=== PATIENT | male | born 1960 | race Caucasian/White ===

== ENCOUNTER → 2020-01-01 08:21 | Outpatient (CLI) | payer OTHER, SELFPAY ==
[2020-01-01 10:27] LABS: Creatinine Urine Random 106.5 mg/dL
[2020-01-01 10:31] LABS: Hemoglobin A1C% w Est Avg Glu 8.4 % (4.0-6.0)
[2020-01-01 10:35] LABS: Microalbumin Urine Random < 0.6 mg/dL (0-1.6)
[2020-01-01 10:42] LABS: Alanine Aminotransferase 19 IU/L (<50); Albumin 4.3 g/dL (3.5-5.0); Albumin Globulin Ratio 1.3 (1.0-2.8); Alkaline Phosphatase 79 U/L (38-126); Aspartate Aminotransferase 23 IU/L (17-59); BUN Creatinine Ratio 22.4 (6-22); Bilirubin Total 0.8 mg/dL (0.2-1.3); Blood Urea Nitrogen 17 mg/dL (9-20); Calcium 9.1 mg/dL (8.4-10.2); Carbon Dioxide 29 mmol/L (22-32); Chloride 97 mmol/L (98-107); Cholesterol 171 mg/dL (140-199); Estimated Glomerular Filt Rate > 60.0 mL/min (>60); Globulin 3.2 g/dL (1.7-4.1); Glucose 176 mg/dL (80-110); HDL Cholesterol 32 mg/dL (40-60); HEMOLYSIS 22 (0-50); LDL Cholesterol Calculated 77 mg/dL (<100); Potassium 4.1 mmol/L (3.4-5.1); Sodium 133 mmol/L (137-145); Total Protein 7.5 g/dL (6.3-8.2); Triglycerides 311 mg/dL (35-150)
== END ==
PROVIDERS: PCP Family Medicine; Referring Provider Family Medicine; Visit Provider Family Medicine
DX: E11.9 Type 2 diabetes mellitus without complications (principal); E78.5 Hyperlipidemia, unspecified; I10 Essential (primary) hypertension
CPT/HCPCS: 36415; 80053; 80061; 82043; 82570; 83036

== ENCOUNTER → 2020-02-10 11:58 | Outpatient (CLI) | payer OTHER, SELFPAY ==
[2020-02-10 12:37] LABS: Appearance Urine UA CLEAR; Bilirubin Urine UA NEGATIVE (NEGATIVE); Color Urine UA YELLOW; Glucose Urine UA 2+ g/dL (Negative); Ketones Urine UA NEGATIVE (NEGATIVE); Leukocyte Esterase Urine UA NEGATIVE (NEGATIVE); Nitrite Urine UA NEGATIVE (Negative); Occult Blood Urine UA NEGATIVE (Negative); Protein Urine UA NEGATIVE (Negative); Specific Gravity Urine UA <=1.005 (1.000-1.035); Urobilinogen Urine UA 0.2 E.U./dL (0.2); pH Urine UA 6.5 (4.5-8.0)
== END ==
PROVIDERS: PCP Family Medicine; Referring Provider Family Medicine; Visit Provider Family Medicine
DX: R10.9 Unspecified abdominal pain (principal); R50.9 Fever, unspecified
CPT/HCPCS: 81003

== ENCOUNTER → 2020-02-12 10:48 | Outpatient (CLI) | payer OTHER, SELFPAY ==
[2020-02-12 12:05] LABS: Add Manual Diff / Slide Review NO; Basophils Absolute Auto 0 /uL (0-100); Basophils Percent Auto 0.1 % (0-2); Eosinophils Absolute Auto 0 /uL (0-450); Eosinophils Percent Auto 0.5 % (2-4); Hematocrit 46.9 % (41-53); Hemoglobin 16.1 g/dL (13.5-17.5); Lymphocytes Absolute Auto 1400 /uL (1100-4500); Lymphocytes Percent Auto 18.3 % (25-40); Mean Corpuscular HGB Conc 34.3 % (30-36); Mean Corpuscular Hemoglobin 30.8 PG (26-34); Mean Corpuscular Volume 89.7 fL (80-100); Monocytes Absolute Auto 600 /uL (0-900); Monocytes Percent Auto 7.8 % (3-14); Neutrophils Absolute Auto 5700 /uL (1500-7000); Neutrophils Percent Auto 73.3 % (50-75); Platelet Count 255 X10^3/uL (150-400); Red Blood Cell Count 5.23 X10^6/uL (4.5-5.9); Red Cell Distribution Width 12.7 % (11.6-14.8); White Blood Cell Count 7.8 X10^3/uL (4.5-11.0)
[2020-02-12 12:12] LABS: Hemoglobin A1C% w Est Avg Glu 7.9 % (4.0-6.0)
[2020-02-12 12:16] LABS: Alanine Aminotransferase 23 IU/L (<50); Albumin 4.5 g/dL (3.5-5.0); Albumin Globulin Ratio 1.4 (1.0-2.8); Alkaline Phosphatase 83 U/L (38-126); Amylase 74 U/L (30-110); Aspartate Aminotransferase 21 IU/L (17-59); BUN Creatinine Ratio 18.1 (6-22); Blood Urea Nitrogen 15 mg/dL (9-20); Calcium 9.6 mg/dL (8.4-10.2); Carbon Dioxide 26 mmol/L (22-32); Chloride 101 mmol/L (98-107); Estimated Glomerular Filt Rate > 60.0 mL/min (>60); Globulin 3.2 g/dL (1.7-4.1); Glucose 290 mg/dL (80-110); HEMOLYSIS 28 (0-50); Lipase 144 U/L (23-300); Potassium 4.2 mmol/L (3.4-5.1); Sodium 134 mmol/L (137-145); Total Protein 7.7 g/dL (6.3-8.2)
== END ==
PROVIDERS: PCP Family Medicine; Referring Provider Family Medicine; Visit Provider Family Medicine
DX: E11.65 Type 2 diabetes mellitus with hyperglycemia (principal); R10.9 Unspecified abdominal pain
CPT/HCPCS: 36415; 80053; 82150; 83036; 83690; 85025

== ENCOUNTER → 2020-03-11 12:41 | Outpatient (CLI) | payer OTHER, SELFPAY ==
--- NOTE | 2020-03-11 12:41 | DI.US.S_ITS ---
PROCEDURE: US RENAL COMPLETE INDICATIONS: RIGHT FLANK PAIN TECHNIQUE: Real-time scanning was performed of the kidneys and bladder, with image documentation. COMPARISON: None. FINDINGS: Kidneys: Kidneys are normal in size. Right kidney measures 13 cm long; left kidney measures 13.8 cm long. Right renal cortical thickness is 1.6 cm; left renal cortical thickness is 2.3 cm. Renal cortical echotexture is normal. No hydronephrosis . 7.4 mm nonobstructing midpole left renal calcification. Bladder: Pre-void bladder volume is 631 mL. Post-void residual is 0 mL. Pre-void images demonstrate no intraluminal masses or stones. On pre-void images, bilateral ureteral jets are noted with color Doppler interrogation. (Of note, ureteral jets may not be detectable in up to 25% of cases due to insufficient differences in specific gravity between ureteral and bladder urine). Miscellaneous: No free pelvic fluid. IMPRESSION: 7.4 nonobstructing left renal calcification; otherwise normal appearance of the kidneys. Dictated by: Chavez Jaimes [facility] Interpreted: Tayo Mathias MD on 03/11/2020 at 14:27 Approved by: Tayo Mathias M.D. on 03/11/2020 at 16:15
== END ==
PROVIDERS: PCP Family Medicine; Referring Provider Family Medicine; Visit Provider Family Medicine
DX: R10.9 Unspecified abdominal pain (principal); N20.0 Calculus of kidney
CPT/HCPCS: 76770

== ENCOUNTER → 2020-05-27 08:54 | Outpatient (CLI) | payer OTHER, SELFPAY ==
--- NOTE | 2020-05-27 08:57 | DI.RAD.S_ITS ---
PROCEDURE: XR KUB INDICATIONS: kidney stone TECHNIQUE: One view of the abdomen acquired. COMPARISON: None. FINDINGS: Surgical changes and devices: None. Bowel: There is increased stool throughout the abdomen consistent with constipation. No free air, pneumatosis, or portal venous gas. Soft tissues: No suspicious abdominal calcifications overlying the renal shadows or along the course of the ureters or bladder. Visualized solid organ contours appear normal in size. Bones: No suspicious bony lesions. IMPRESSION: 1. No nephroureteral calculi suspected. 2. Constipation. Dictated by: Cheng Downs M.D. on 05/27/2020 at 9:43 Approved by: Cheng Downs M.D. on 05/27/2020 at 9:46
[2020-05-27 09:45] LABS: Hemoglobin A1C% w Est Avg Glu 8.1 % (4.0-6.0)
[2020-05-27 10:52] LABS: Prostate Specific Antigen 0.387 ng/mL (0.10-4.00)
== END ==
PROVIDERS: PCP Family Medicine; Referring Provider Specialist; Visit Provider Family Medicine
DX: N20.0 Calculus of kidney (principal); N40.0 Benign prostatic hyperplasia without lower urinary tract symptoms; E11.9 Type 2 diabetes mellitus without complications
CPT/HCPCS: 36415; 74018; 83036; 84153

== ENCOUNTER → 2020-07-06 14:09 | Outpatient (CLI) | payer OTHER, SELFPAY ==
--- NOTE | 2020-07-06 14:11 | DI.CT.S_ITS ---
PROCEDURE: CT KIDNEY URETER BLADDER (KUB) INDICATIONS: Kidney stone TECHNIQUE: Noncontrast 5 mm thick sections acquired from the diaphragms to the symphysis. 5 mm thick coronal and sagittal reformats were then performed. For radiation dose reduction, the following was used: automated exposure control, adjustment of mA and/or kV according to patient size. COMPARISON: [facility], CR, XR KUB, 05/27/2020, 8:55. FINDINGS: ABDOMEN: Lung bases: Normal. Heart: No significant findings. Liver: Normal. Gallbladder: Contracted otherwise normal Bile ducts: Normal. Pancreas: Normal. Spleen: Normal. Adrenals: Normal. Kidneys and Ureters: Normal. Stomach and duodenum: Normal. Bowel: Normal. Normal appendix. Other: No free fluid or air. Abdominal nodes: Normal. Aorta and IVC: Normal in size. Ventral wall: Normal. PELVIS: Bladder: Normal. Inguinal region: No hernia. Pelvic nodes: Normal. Bones: Spondylytic changes and facet arthropathy. No vertebral body compression fracture. IMPRESSION: No urolithiasis or evidence of urinary obstruction Normal appendix. No acute abnormality Dictated by: Lewis Lopez M.D. on 07/06/2020 at 15:10 Approved by: Lewis Lopez M.D. on 07/06/2020 at 15:15
== END ==
PROVIDERS: PCP Family Medicine; Referring Provider Specialist; Visit Provider Specialist
DX: N20.0 Calculus of kidney (principal)
CPT/HCPCS: 74176

== ENCOUNTER → 2020-09-13 15:45 | Outpatient (CLI) | payer OTHER, SELFPAY ==
[2020-09-13 16:19] LABS: COVID19 -Nasal RAPID Negative (Negative)
== END ==
PROVIDERS: PCP Family Medicine; Visit Provider Physician Assistant
DX: R05 Cough (principal)
CPT/HCPCS: 87635

== ENCOUNTER 2020-09-13 16:16 | Inpatient (IN) | payer OTHER, SELFPAY ==
[2020-09-13] VITALS (31 sets, daily range): BP systolic 105–169; BP diastolic 77–100; PULSE 82–161; RESP 14–25; TEMP 37.1–37.2; O2SAT 92–96; BMI 30.8
--- NOTE | 2020-09-13 16:51 | DI.RAD.S_ITS ---
PROCEDURE: XR CHEST 1V INDICATIONS: chest pain TECHNIQUE: One view of the chest was acquired. COMPARISON: None. FINDINGS: Surgical changes and devices: None. Lungs and pleura: There are bilateral confluent airspace opacities, left greater than right, with a peripheral and basilar predominance. Pulmonary vascular prominence is also demonstrated suggestive of edema. No pleural effusions or pneumothorax. Mediastinum: Mediastinal contours appear normal. Heart size is borderline enlarged. Bones and chest wall: No suspicious bony lesions. Overlying soft tissues appear unremarkable. IMPRESSION: 1. Bilateral confluent airspace opacities with a peripheral and basilar predominance. Findings are suggestive of consolidation and pneumonia including from atypical etiologies. However, the differential includes inflammatory processes such as eosinophilic pneumonia or pulmonary infarcts. Recommend correlation clinically. Dictated by: Kevin Martines M.D. on 09/13/2020 at 17:19 Approved by: Kevin Martines M.D. on 09/13/2020 at 17:21
[2020-09-13 17:42] LABS: Add Manual Diff / Slide Review NO; Basophils Absolute Auto 0 /uL (0-100); Basophils Percent Auto 0.3 % (0-2); Eosinophils Absolute Auto 100 /uL (0-450); Eosinophils Percent Auto 1.8 % (2-4); Hematocrit 38.4 % (41-53); Hemoglobin 13.5 g/dL (13.5-17.5); Lymphocytes Absolute Auto 1400 /uL (1100-4500); Lymphocytes Percent Auto 21.2 % (25-40); Mean Corpuscular HGB Conc 35.1 % (30-36); Mean Corpuscular Hemoglobin 29.9 PG (26-34); Mean Corpuscular Volume 85.2 fL (80-100); Monocytes Absolute Auto 1200 /uL (0-900); Monocytes Percent Auto 18.5 % (3-14); Neutrophils Absolute Auto 3900 /uL (1500-7000); Neutrophils Percent Auto 58.2 % (50-75); Platelet Count 398 X10^3/uL (150-400); Red Blood Cell Count 4.51 X10^6/uL (4.5-5.9); Red Cell Distribution Width 13.2 % (11.6-14.8); White Blood Cell Count 6.7 X10^3/uL (4.5-11.0)
[2020-09-13] MEDS: dilTIAZem 5 MG/ML SDV 10 MG IV (17:45)
[2020-09-13] MEDS: dilTIAZem 5 MG/ML SDV 25 MG IV (17:46)
[2020-09-13 17:54] LABS: INR 1.2 (0.9-1.3)
[2020-09-13 17:56] LABS: PTT Partial Thromboplastin Tim 29 SECONDS (26.4-36.2)
[2020-09-13 18:01] LABS: Alanine Aminotransferase 53 IU/L (<50); Albumin 3.2 g/dL (3.5-5.0); Alkaline Phosphatase 93 U/L (38-126); Aspartate Aminotransferase 28 IU/L (17-59); Bilirubin Total 0.9 mg/dL (0.2-1.3); Blood Urea Nitrogen 11 mg/dL (9-20); Calcium 8.7 mg/dL (8.4-10.2); Carbon Dioxide 25 mmol/L (22-32); Chloride 105 mmol/L (98-107); Creatine Kinase 124 U/L (55-170); Estimated Glomerular Filt Rate > 60.0 mL/min (>60); Globulin 3.2 g/dL (1.7-4.1); Glucose 263 mg/dL (80-110); HEMOLYSIS < 15 (0-50); Lactate (Lactic Acid) 1.2 mmol/L (0.7-2.1); Lipase 154 U/L (23-300); Magnesium 2.1 mg/dL (1.6-2.3); Potassium 3.9 mmol/L (3.4-5.1); Sodium 136 mmol/L (137-145); Total Protein 6.4 g/dL (6.3-8.2)
[2020-09-13 18:12] LABS: NT-proBNP (BNP-Adult 18+) 1110 pg/mL (<125); Troponin I < 0.012 ng/mL (0.01-0.034)
[2020-09-13 18:16] LABS: CKMB % Relative Index 1.4 % (1.5-5.0); Creatine Kinase MB 1.73 ng/mL (<2.37)
[2020-09-13] MEDS: dilTIAZem 125 MG in SODIUM CHLORIDE 0.9% 100 ML IV (18:37)
--- NOTE | 2020-09-13 18:44 | ED_ITS ---
HPI - SOB/Dyspnea <Senaitduong Wyatt, - Last Filed: 09/14/20 07:31> General Chief Complaint: Shortness of Breath/Dyspnea Stated Complaint: SENT BY WALK IN CLINIC FOR POSSIBLE A FIB Time Seen by Provider: 09/13/20 17:31 Source: patient Mode of arrival: Ambulatory Limitations: no limitations History of Present Illness HPI Narrative: This is a 60-year-old male comes to the emergency department with complaint of COVID symptoms. Patient states starting around August 28 he began feeling anxious, had a cough that was initially nonproductive but now has some mild yellow sputum. Restless and having low-grade temperatures. He has also had change of taste and notes that everything seems to smell like hot dogs. He has had a decreased appetite but is eating regularly. Patient states he was not feeling too bad for several days and then had some increasing symptoms. Patient's cough is continued to increase. He had some nausea vomiting for few days but this is resolved. He did states he has not had any intranasal symptoms. Patient did note that even before this he was having racing heart intermittently and has had increasing shortness of breath. He is not appreciate any chest pain or pressure. No swelling in his extremities. Patient states that he is independent bed diabetic, has a history of hypertension, dyslipidemia and anxiety. Patient takes Humulin 30 units b.i.d., metformin a 1000 in the morning and 1500 mg evening, lisinopril, lovastatin, escitalopram an aspirin 81 mg daily. Patient states he did have an alcoholic pancreatitis about 15 years ago. He no longer drinks. He does have a history of appendectomy, no cardiac stents, no heart catheterization or stress test. He is allergic to Cleocin erythromycin. No tobacco, no illicit. With his primary care is Dr. Yu. Related Data Home Medications Medication Instructions Recorded Confirmed aspirin 81 mg tablet,delayed 81 mg PO DAILY 01/26/19 09/13/20 release Previous Rx's Medication Instructions Recorded One Touch Ultra Test Strips #180 ea 02/16/20 insulin syringes (disposable) 1 mL #500 each 02/16/20 cyclobenzaprine 5 mg tablet 5 mg PO BID PRN #30 tab 02/25/20 hydroxyzine HCl 25 mg tablet 25 mg PO BID PRN #30 tab 02/25/20 metformin 1,000 mg tablet See Rx Instructions PO DAILY #225 02/25/20 tab citalopram 20 mg tablet See Rx Instructions .ROUTE 03/18/20 .COMPLEX #90 tab lovastatin 10 mg tablet 10 mg PO DAILY #90 tab 03/24/20 lisinopril 5 mg tablet See Rx Instructions .ROUTE 05/05/20 .COMPLEX #90 tab insulin NPH isoph U-100 human 100 See Rx Instructions .ROUTE 07/18/20 unit/mL subcutaneous suspension .COMPLEX #30 milliliter (Humulin N NPH U-100 Insulin (isophane susp)) Allergies Allergy/AdvReac Type Severity Reaction Status Date / Time azithromycin AdvReac Verified 09/13/20 16:39 clindamycin [From Cleocin] AdvReac Verified 09/13/20 15:38 Review of Systems <Senait Wyatt DO - Last Filed: 09/14/20 07:31> Review of Systems ROS Unobtainable: All systems reviewed & are unremarkable except as noted in HPI and below Patient History <Senait Wyatt DO - Last Filed: 09/14/20 07:31> Medical History Alcoholism in remission Anxiety DM type 2 (diabetes mellitus, type 2) (~2013) Foot pain Headache Hx of pancreatitis Hyperlipidemia Hypertension Kidney stone Right flank pain Vision disorder Surgical History Anesthesia Hx of appendectomy (~08/1974) Family History Mother Cancer Alzheimer disease Diabetes mellitus Mental health problem Thyroid disorder Father Cancer Diabetes mellitus Hyperlipidemia Hypertension Social History marital status: household members: spouse occupational status: previously employed Smoking Status: Former smoker alcohol intake: former caffeine: Yes Smoking Status: Former smoker Substance Use Type: does not use Exam <Senait Wyatt DO - Last Filed: 09/14/20 07:31> Narrative Exam Narrative: GENERAL: Alert and oriented x three, male in mild distress. HEENT: Head normocephalic, atraumatic, EOMI, pupils reactive, face symmetric, moist mucous membranes NECK: Supple, full range of motion CARDIOVASCULAR: Irregularly irregular and tachycardic rate and rhythm without murmurs, rubs or gallops. No JVD. No swelling bilateral lower extremities. RESPIRATORY: Breath sounds equal bilaterally, no wheezes rales or rhonchi. No tachypnea accessory muscle use. ABDOMEN: Soft, nontender. Normoactive bowel sounds all 4 quadrants. No guarding or rebound, rigidity, no mass : No CVA tenderness EXTREMITIES: Normal range of motion, no edema. Neurovascularly intact NEUROLOGICAL: Cranial nerves II through XII grossly intact. Moving all extremities SKIN: Warm, dry, no petechiae, no rashes or lesions. Initial Vital Signs Initial Vital Signs: Vital Signs Temperature 98.7 F 09/13/20 16:33 Pulse Rate 82 09/13/20 16:33 Respiratory Rate 18 09/13/20 16:33 Blood Pressure 143/95 H 09/13/20 16:33 Pulse Oximetry 95 09/13/20 16:33 <Sid Rodrigues MD - Last Filed: 09/13/20 20:35> Initial Vital Signs Initial Vital Signs: Vital Signs Temperature 98.7 F 09/13/20 16:33 Pulse Rate 82 09/13/20 16:33 Respiratory Rate 18 09/13/20 16:33 Blood Pressure 143/95 H 09/13/20 16:33 Pulse Oximetry 95 09/13/20 16:33 Course <Senait Wyatt DO - Last Filed: 09/14/20 07:31> Orders Ordered: Acetaminophen (Acetaminophen 325 Mg Tablet) 650 mg PO Q6HR PRN PRN Reason: Fever Atorvastatin Calcium (Atorvastatin 20 Mg Tablet) 10 mg PO BEDTIME [facility] Last Admin: 09/13/20 22:46 Dose: Not Given Documented by: SSARDEL Citalopram Hydrobromide (Citalopram 10 Mg Tablet) 20 mg PO DAILY [facility] Dextrose (Dextrose 50 % In Water 25 Gm/50 Ml Syringe) 25 gm IV PRN PRN PRN Reason: Hypoglycemia Docusate Sodium (Docusate 100 Mg Capsule) 100 mg PO BID [facility] Last Admin: 09/13/20 22:46 Dose: Not Given Documented by: SSARDEL Diltiazem HCl 125 mg/ Sodium (Chloride) 125 mls @ 5 mls/hr IV TITRATE GOME[facility]; Prot ocol Last Admin: 09/14/20 05:06 Dose: 10 mg/hr, 10 mls/hr Documented by: Titration: 09/14/20 05:06 Dose: 5 mg/hr, 5 mls/hr Documented by: Titration: 09/14/20 02:30 Dose: 5 mg/hr, 5 mls/hr Documented by: Titration: 09/14/20 01:00 Dose: 10 mg/hr, 10 mls/hr Documented by: Titration: 09/13/20 22:00 Dose: 15 mg/hr, 15 mls/hr Documented by: Titration: 09/13/20 21:11 Dose: 12.5 mg/hr, 12.5 mls/hr Documented by: Titration: 09/13/20 20:31 Dose: 10 mg/hr, 10 mls/hr Documented by: Titration: 09/13/20 19:40 Dose: 10 mg/hr, 10 mls/hr Documented by: Titration: 09/13/20 19:34 Dose: 7.5 mg/hr, 7.5 mls/hr Documented by: Admin: 09/13/20 18:37 Dose: 5 mg/hr, 5 mls/hr Documented by: [email or web address] Sodium Chloride (Normal Saline 0.9%) 1,000 mls @ 21 mls/hr IV CONT [facility] Last Admin: 09/13/20 22:16 Dose: 21 mls/hr Documented by: MADELINE Insulin Human Lispro (Insulin Lispro 100 Unit/Ml 3ml Vial) 0 unit SUBCUT ACHS [facility]; Protocol Last Admin: 09/13/20 23:37 Dose: 2 unit Documented by: MADELINE Cosigned by: TBLANTO Insulin Human NPH (Insulin Nph 100 Unit/Ml Vial) 30 unit SUBCUT BIDAC [facility] Lisinopril (Lisinopril 5 Mg Tablet) 5 mg PO DAILY [facility] Lorazepam (Lorazepam 2 Mg/Ml Inj) 0.25 mg IV Q4HR PRN PRN Reason: Anxiety Melatonin (Melatonin 3 Mg Tablet) 3 mg PO BEDTIME [facility] Metoprolol Tartrate (Metoprolol Ir 25 Mg Tablet) 50 mg PO Q6HR [facility] Morphine Sulfate (Morphine 2 Mg/Ml Inj) 2 mg IV Q4HR PRN PRN Reason: Pain, Mild (1-3) Naloxone HCl (Naloxone 0.4 Mg/Ml Vial) 0.2 mg IV Q2MIN PRN PRN Reason: Opiate Reversal Pantoprazole Sodium (Pantoprazole 40 Mg Vial) 40 mg IV DAILY [facility] Rivaroxaban (Rivaroxaban 10 Mg Tablet) 5 mg PO BIDWM [facility] Last Admin: 09/14/20 01:37 Dose: Not Given Documented by: Admin: 09/13/20 23:36 Dose: 5 mg Documented by: MADELINE Discontinued Medications Diltiazem HCl (Diltiazem 5 Mg/Ml Sdv) 10 mg IV NOW ONE Stop: 09/13/20 17:32 Last Admin: 09/13/20 17:45 Dose: 10 mg Documented by: MAK Enoxaparin Sodium (Enoxaparin 40 Mg/0.4 Ml Syringe) 40 mg SUBCUT DAILY [facility] Furosemide (Furosemide 40 Mg/4 Ml Vial) 40 mg IV NOW ONE Stop: 09/13/20 19:07 Last Admin: 09/13/20 19:45 Dose: 40 mg Documented by: IAIN Lorazepam (Lorazepam 2 Mg/Ml Inj) 0.5 mg IV Q4HR PRN PRN Reason: Anxiety Last Admin: 09/13/20 22:16 Dose: 0.5 mg Documented by: MADELINE Metoprolol Succinate (Metoprolol Er 50 Mg Tablet) 50 mg PO DAILY [facility] Metoprolol Tartrate (Metoprolol Tartrate 5 Mg/5 Ml Inj) 5 mg IV NOW ONE Stop: 09/13/20 19:07 Last Admin: 09/13/20 19:45 Dose: Not Given Documented by: IAIN Metoprolol Tartrate (Metoprolol Ir 25 Mg Tablet) 25 mg PO Q6HR [facility] Last Admin: 09/14/20 05:06 Dose: 25 mg Documented by: Admin: 09/13/20 23:36 Dose: 25 mg Documented by: MADELINE Non-Formulary Medication (Citalopram) 20 mg .ROUTE .COMPLEX [facility] Non-Formulary Medication (Lovastatin) 10 mg PO DAILY [facility] Vital Signs Vital signs: Vital Signs - 8 hr 09/13/20 16:33 09/13/20 17:42 09/13/20 18:00 Temperature 98.7 F Pulse Rate 82 157 H 154 H Respiratory Rate 18 20 18 Blood Pressure 143/95 H Pulse Oximetry 95 95 94 09/13/20 18:30 09/13/20 18:35 09/13/20 18:40 Temperature Pulse Rate 158 H 157 H 158 H Respiratory Rate 19 21 20 Blood Pressure Pulse Oximetry 93 94 95 09/13/20 18:45 09/13/20 18:46 09/13/20 18:47 Temperature Pulse Rate 157 H 156 H 155 H Respiratory Rate 21 17 14 Blood Pressure 169/84 H 169/84 H Pulse Oximetry 93 93 94 09/13/20 18:50 09/13/20 18:55 09/13/20 19:00 Temperature Pulse Rate 161 H 155 H 150 H Respiratory Rate 19 21 21 Blood Pressure 161/87 H Pulse Oximetry 94 95 95 09/13/20 19:05 09/13/20 19:10 09/13/20 19:15 Temperature Pulse Rate 155 H 160 H 157 H Respiratory Rate 23 18 20 Blood Pressure 159/100 H Pulse Oximetry 95 95 94 09/13/20 19:20 Temperature Pulse Rate 160 H Respiratory Rate 20 Blood Pressure Pulse Oximetry 94 <Sid Rodrigues MD - Last Filed: 09/13/20 20:35> Orders Ordered: Acetaminophen (Acetaminophen 325 Mg Tablet) 650 mg PO Q6HR PRN PRN Reason: Fever Atorvastatin Calcium (Atorvastatin 20 Mg Tablet) 10 mg PO BEDTIME [facility] Last Admin: 09/13/20 22:46 Dose: Not Given Documented by: MADELINE Citalopram Hydrobromide (Citalopram 10 Mg Tablet) 20 mg PO DAILY [facility] Dextrose (Dextrose 50 % In Water 25 Gm/50 Ml Syringe) 25 gm IV PRN PRN PRN Reason: Hypoglycemia Docusate Sodium (Docusate 100 Mg Capsule) 100 mg PO BID [facility] Last Admin: 09/13/20 22:46 Dose: Not Given Documented by: MADELINE Diltiazem HCl 125 mg/ Sodium (Chloride) 125 mls @ 5 mls/hr IV TITRATE GOMEZ; Protocol Last Admin: 09/14/20 05:06 Dose: 10 mg/hr, 10 mls/hr Documented by: Titration: 09/14/20 05:06 Dose: 5 mg/hr, 5 mls/hr Documented by: Titration: 09/14/20 02:30 Dose: 5 mg/hr, 5 mls/hr Documented by: Titration: 09/14/20 01:00 Dose: 10 mg/hr, 10 mls/hr Documented by: Titration: 09/13/20 22:00 Dose: 15 mg/hr, 15 mls/hr Documented by: Titration: 09/13/20 21:11 Dose: 12.5 mg/hr, 12.5 mls/hr Documented by: Titration: 09/13/20 20:31 Dose: 10 mg/hr, 10 mls/hr Documented by: Titration: 09/13/20 19:40 Dose: 10 mg/hr, 10 mls/hr Documented by: Titration: 09/13/20 19:34 Dose: 7.5 mg/hr, 7.5 mls/hr Documented by: Admin: 09/13/20 18:37 Dose: 5 mg/hr, 5 mls/hr Documented by: [email or web address] Sodium Chloride (Normal Saline 0.9%) 1,000 mls @ 21 mls/hr IV CONT [facility] Last Admin: 09/13/20 22:16 Dose: 21 mls/hr Documented by: MADELINE Insulin Human Lispro (Insulin Lispro 100 Unit/Ml 3ml Vial) 0 unit SUBCUT ACHS [facility]; Protocol Last Admin: 09/13/20 23:37 Dose: 2 unit Documented by: MADELINE Cosigned by: TBLANTO Insulin Human NPH (Insulin Nph 100 Unit/Ml Vial) 30 unit SUBCUT BIDAC [facility] Lisinopril (Lisinopril 5 Mg Tablet) 5 mg PO DAILY [facility] Lorazepam (Lorazepam 2 Mg/Ml Inj) 0.25 mg IV Q4HR PRN PRN Reason: Anxiety Melatonin (Melatonin 3 Mg Tablet) 3 mg PO BEDTIME [facility] Metoprolol Tartrate (Metoprolol Ir 25 Mg Tablet) 50 mg PO Q6HR [facility] Morphine Sulfate (Morphine 2 Mg/Ml Inj) 2 mg IV Q4HR PRN PRN Reason: Pain, Mild (1-3) Naloxone HCl (Naloxone 0.4 Mg/Ml Vial) 0.2 mg IV Q2MIN PRN PRN Reason: Opiate Reversal Pantoprazole Sodium (Pantoprazole 40 Mg Vial) 40 mg IV DAILY [facility] Rivaroxaban (Rivaroxaban 10 Mg Tablet) 5 mg PO BIDWM [facility] Last Admin: 09/14/20 01:37 Dose: Not Given Documented by: Admin: 09/13/20 23:36 Dose: 5 mg Documented by: MADELINE Discontinued Medications Diltiazem HCl (Diltiazem 5 Mg/Ml Sdv) 10 mg IV NOW ONE Stop: 09/13/20 17:32 Last Admin: 09/13/20 17:45 Dose: 10 mg Documented by: CTRMIKAYLA Enoxaparin Sodium (Enoxaparin 40 Mg/0.4 Ml Syringe) 40 mg SUBCUT DAILY [facility] Furosemide (Furosemide 40 Mg/4 Ml Vial) 40 mg IV NOW ONE Stop: 09/13/20 19:07 Last Admin: 09/13/20 19:45 Dose: 40 mg Documented by: IAIN Lorazepam (Lorazepam 2 Mg/Ml Inj) 0.5 mg IV Q4HR PRN PRN Reason: Anxiety Last Admin: 09/13/20 22:16 Dose: 0.5 mg Documented by: MADELINE Metoprolol Succinate (Metoprolol Er 50 Mg Tablet) 50 mg PO DAILY [facility] Metoprolol Tartrate (Metoprolol Tartrate 5 Mg/5 Ml Inj) 5 mg IV NOW ONE Stop: 09/13/20 19:07 Last Admin: 09/13/20 19:45 Dose: Not Given Documented by: IAIN Metoprolol Tartrate (Metoprolol Ir 25 Mg Tablet) 25 mg PO Q6HR [facility] Last Admin: 09/14/20 05:06 Dose: 25 mg Documented by: Admin: 09/13/20 23:36 Dose: 25 mg Documented by: MADELINE Non-Formulary Medication (Citalopram) 20 mg .ROUTE .COMPLEX [facility] Non-Formulary Medication (Lovastatin) 10 mg PO DAILY [facility] Vital Signs Vital signs: Vital Signs - 8 hr 09/13/20 16:33 09/13/20 17:42 09/13/20 18:00 Temperature 98.7 F Pulse Rate 82 157 H 154 H Respiratory Rate 18 20 18 Blood Pressure 143/95 H Pulse Oximetry 95 95 94 09/13/20 18:30 09/13/20 18:35 09/13/20 18:40 Temperature Pulse Rate 158 H 157 H 158 H Respiratory Rate 19 21 20 Blood Pressure Pulse Oximetry 93 94 95 09/13/20 18:45 09/13/20 18:46 09/13/20 18:47 Temperature Pulse Rate 157 H 156 H 155 H Respiratory Rate 21 17 14 Blood Pressure 169/84 H 169/84 H Pulse Oximetry 93 93 94 09/13/20 18:50 09/13/20 18:55 09/13/20 19:00 Temperature Pulse Rate 161 H 155 H 150 H Respiratory Rate 19 21 21 Blood Pressure 161/87 H Pulse Oximetry 94 95 95 09/13/20 19:05 09/13/20 19:10 09/13/20 19:15 Temperature Pulse Rate 155 H 160 H 157 H Respiratory Rate 23 18 20 Blood Pressure 159/100 H Pulse Oximetry 95 95 94 09/13/20 19:20 Temperature Pulse Rate 160 H Respiratory Rate 20 Blood Pressure Pulse Oximetry 94 MDM - SOB/Dyspnea <Senait Wyatt, - Last Filed: 09/14/20 07:31> Lab Data Result diagrams: 09/14/20 07:00 09/13/20 17:30 Labs: Lab Results 09/13/20 09/13/20 09/13/20 Range/Units 17:30 17:30 17:30 WBC 6.7 (4.5-11.0) X10^3/uL RBC 4.51 (4.5-5.9) X10^6/uL Hgb 13.5 (13.5-17.5) g/dL Hct 38.4 L (41-53) % MCV 85.2 (80-100) fL MCH 29.9 (26-34) PG MCHC 35.1 (30-36) % RDW 13.2 (11.6-14.8) % Plt Count 398 (150-400) X10^3/uL Neut % (Auto) 58.2 (50-75) % Lymph % (Auto) 21.2 L (25-40) % Story % (Auto) 18.5 H (3-14) % Eos % (Auto) 1.8 L (2-4) % Baso % (Auto) 0.3 (0-2) % Neut # (Auto) 3900 (0897-0689) /uL Lymph # (Auto) 1400 (5606-7232) /uL Story # (Auto) 1200 H (0-900) /uL Eos # (Auto) 100 (0-450) /uL Baso # (Auto) 0 (0-100) /uL PT 14.0 H (10.1-12.7) SECONDS INR 1.2 (0.9-1.3) APTT 29 (26.4-36.2) SECONDS Sodium 136 L (137-145) mmol/L Potassium 3.9 (3.4-5.1) mmol/L Chloride 105 (98-107) mmol/L Carbon Dioxide 25 (22-32) mmol/L BUN 11 (9-20) mg/dL Creatinine 0.58 L (0.66-1.25) mg/dL Estimated GFR > 60.0 (>60) mL/min BUN/Creatinine Ratio 19.0 (6-22) Glucose 263 H (80-110) mg/dL Lactate (0.7-2.1) mmol/L Calcium 8.7 (8.4-10.2) mg/dL Magnesium 2.1 (1.6-2.3) mg/dL Total Bilirubin 0.9 (0.2-1.3) mg/dL AST 28 (17-59) IU/L ALT 53 H (<50) IU/L Alkaline Phosphatase 93 (38-126) U/L Total Creatine Kinase 124 (55-170) U/L CK-MB (CK-2) 1.73 (<2.37) ng/mL CK-MB (CK-2) Rel Index 1.4 L (1.5-5.0) % Troponin I < 0.012 (0.01-0.034) ng/mL NT-Pro-B Natriuret Pep 1110 H (<125) pg/mL Total Protein 6.4 (6.3-8.2) g/dL Albumin 3.2 L (3.5-5.0) g/dL Globulin 3.2 (1.7-4.1) g/dL Albumin/Globulin Ratio 1.0 (1.0-2.8) Lipase 154 (23-300) U/L Procalcitonin (<0.5) ng/mL SARS-CoV-2 (PCR) (Negative) 09/13/20 09/13/20 09/13/20 Range/Units 17:30 17:30 18:00 WBC (4.5-11.0) X10^3/uL RBC (4.5-5.9) X10^6/uL Hgb (13.5-17.5) g/dL Hct (41-53) % MCV (80-100) fL MCH (26-34) PG MCHC (30-36) % RDW (11.6-14.8) % Plt Count (150-400) X10^3/uL Neut % (Auto) (50-75) % Lymph % (Auto) (25-40) % Story % (Auto) (3-14) % Eos % (Auto) (2-4) % Baso % (Auto) (0-2) % Neut # (Auto) (2132-5148) /uL Lymph # (Auto) (8720-4814) /uL Story # (Auto) (0-900) /uL Eos # (Auto) (0-450) /uL Baso # (Auto) (0-100) /uL PT (10.1-12.7) SECONDS INR (0.9-1.3) APTT (26.4-36.2) SECONDS Sodium (137-145) mmol/L Potassium (3.4-5.1) mmol/L Chloride (98-107) mmol/L Carbon Dioxide (22-32) mmol/L BUN (9-20) mg/dL Creatinine (0.66-1.25) mg/dL Estimated GFR (>60) mL/min BUN/Creatinine Ratio (6-22) Glucose (80-110) mg/dL Lactate 1.2 (0.7-2.1) mmol/L Calcium (8.4-10.2) mg/dL Magnesium (1.6-2.3) mg/dL Total Bilirubin (0.2-1.3) mg/dL AST (17-59) IU/L ALT (<50) IU/L Alkaline Phosphatase (38-126) U/L Total Creatine Kinase (55-170) U/L CK-MB (CK-2) (<2.37) ng/mL CK-MB (CK-2) Rel Index (1.5-5.0) % Troponin I (0.01-0.034) ng/mL NT-Pro-B Natriuret Pep (<125) pg/mL Total Protein (6.3-8.2) g/dL Albumin (3.5-5.0) g/dL Globulin (1.7-4.1) g/dL Albumin/Globulin Ratio (1.0-2.8) Lipase (23-300) U/L Procalcitonin 0.07 (<0.5) ng/mL SARS-CoV-2 (PCR) Positive H (Negative) Imaging Data Chest x-ray: Radiologist's Impression: [address] [id number] ReportSigned Patient: Fausto Phoenix RMR#: [id number]: 9Acct:[id number]/Sex: 60 / MDate of Service: 09/13/20Loc: EDAccession Number: [id number] Procedure: XR chest 1V Ordering Provider: Kailyn Rosario D.O. PROCEDURE: XR CHEST 1V INDICATIONS: chest pain TECHNIQUE: One view of the chest was acquired. COMPARISON: None. FINDINGS: Surgical changes and devices: None. Lungs and pleura: There are bilateral confluent airspace opacities, left greater than right, with a peripheral and basilar predominance. Pulmonary vascular prominence is also demonstrated suggestive of edema. No pleural effusions or pneumothorax. Mediastinum: Mediastinal contours appear normal. Heart size is borderline enlarged. Bones and chest wall: No suspicious bony lesions. Overlying soft tissues appear unremarkable. IMPRESSION: 1. Bilateral confluent airspace opacities with a peripheral and basilar predominance. Findings are suggestive of consolidation and pneumonia including from atypical etiologies. However, the differential includes inflammatory processes such as eosinophilic pneumonia or pulmonary infarcts. Recommend correlation clinically. Dictated by: Kevin Martines M.D. on 09/13/2020 at 17:19 Approved by: Kevin Martines M.D. on 09/13/2020 at 17:21 ECG Data Attestation: I personally reviewed and interpreted this ECG as follows: Prior ECG tracings: not available for review Interpretation: AFib with rapid ventricular response, rate of 165 QRS 82 and QTC 467. No acute ST changes appreciated. Nonspecific change. No prior EKGs available. MDM Narrative Medical decision making narrative: This is a 60-year-old male with no new formal diagnosis of atrial fibrillation but has been having symptoms on off for the past month. Patient has also had 2 COVID exposures including his and son whom he lives with has developed symptoms as well. Patient states his COVID symptoms he is probably on about 20 days of symptoms and has not been improving but seems to be worsening. He is insulin-dependent diabetic, is on antihypertensive dyslipidemia medications an aspirin 81 mg daily. Patient's chest x-ray shows bilateral past these left greater than right which could possibly be secondary to CHF, bacterial pneumonia or related to COVID. Patient's labs show negative troponin, BNP is elevated at 1100, glucose is 263 patient has mild electrolyte abnormalities with no major CBC changes. Patient's COVID swab on the rapid was negative earlier today but his PCR is positive. <Sid Rodrigues MD - Last Filed: 09/13/20 20:35> Lab Data Labs: Lab Results 09/13/20 09/13/20 09/13/20 Range/Units 17:30 17:30 17:30 WBC 6.7 (4.5-11.0) X10^3/uL RBC 4.51 (4.5-5.9) X10^6/uL Hgb 13.5 (13.5-17.5) g/dL Hct 38.4 L (41-53) % MCV 85.2 (80-100) fL MCH 29.9 (26-34) PG MCHC 35.1 (30-36) % RDW 13.2 (11.6-14.8) % Plt Count 398 (150-400) X10^3/uL Neut % (Auto) 58.2 (50-75) % Lymph % (Auto) 21.2 L (25-40) % Story % (Auto) 18.5 H (3-14) % Eos % (Auto) 1.8 L (2-4) % Baso % (Auto) 0.3 (0-2) % Neut # (Auto) 3900 (5957-5932) /uL Lymph # (Auto) 1400 (9702-4656) /uL Story # (Auto) 1200 H (0-900) /uL Eos # (Auto) 100 (0-450) /uL Baso # (Auto) 0 (0-100) /uL PT 14.0 H (10.1-12.7) SECONDS INR 1.2 (0.9-1.3) APTT 29 (26.4-36.2) SECONDS Sodium 136 L (137-145) mmol/L Potassium 3.9 (3.4-5.1) mmol/L Chloride 105 (98-107) mmol/L Carbon Dioxide 25 (22-32) mmol/L BUN 11 (9-20) mg/dL Creatinine 0.58 L (0.66-1.25) mg/dL Estimated GFR > 60.0 (>60) mL/min BUN/Creatinine Ratio 19.0 (6-22) Glucose 263 H (80-110) mg/dL Lactate (0.7-2.1) mmol/L Calcium 8.7 (8.4-10.2) mg/dL Magnesium 2.1 (1.6-2.3) mg/dL Total Bilirubin 0.9 (0.2-1.3) mg/dL AST 28 (17-59) IU/L ALT 53 H (<50) IU/L Alkaline Phosphatase 93 (38-126) U/L Total Creatine Kinase 124 (55-170) U/L CK-MB (CK-2) 1.73 (<2.37) ng/mL CK-MB (CK-2) Rel Index 1.4 L (1.5-5.0) % Troponin I < 0.012 (0.01-0.034) ng/mL NT-Pro-B Natriuret Pep 1110 H (<125) pg/mL Total Protein 6.4 (6.3-8.2) g/dL Albumin 3.2 L (3.5-5.0) g/dL Globulin 3.2 (1.7-4.1) g/dL Albumin/Globulin Ratio 1.0 (1.0-2.8) Lipase 154 (23-300) U/L Procalcitonin (<0.5) ng/mL SARS-CoV-2 (PCR) (Negative) 09/13/20 09/13/20 09/13/20 Range/Units 17:30 17:30 18:00 WBC (4.5-11.0) X10^3/uL RBC (4.5-5.9) X10^6/uL Hgb (13.5-17.5) g/dL Hct (41-53) % MCV (80-100) fL MCH (26-34) PG MCHC (30-36) % RDW (11.6-14.8) % Plt Count (150-400) X10^3/uL Neut % (Auto) (50-75) % Lymph % (Auto) (25-40) % Story % (Auto) (3-14) % Eos % (Auto) (2-4) % Baso % (Auto) (0-2) % Neut # (Auto) (5209-2884) /uL Lymph # (Auto) (0401-6740) /uL Story # (Auto) (0-900) /uL Eos # (Auto) (0-450) /uL Baso # (Auto) (0-100) /uL PT (10.1-12.7) SECONDS INR (0.9-1.3) APTT (26.4-36.2) SECONDS Sodium (137-145) mmol/L Potassium (3.4-5.1) mmol/L Chloride (98-107) mmol/L Carbon Dioxide (22-32) mmol/L BUN (9-20) mg/dL Creatinine (0.66-1.25) mg/dL Estimated GFR (>60) mL/min BUN/Creatinine Ratio (6-22) Glucose (80-110) mg/dL Lactate 1.2 (0.7-2.1) mmol/L Calcium (8.4-10.2) mg/dL Magnesium (1.6-2.3) mg/dL Total Bilirubin (0.2-1.3) mg/dL AST (17-59) IU/L ALT (<50) IU/L Alkaline Phosphatase (38-126) U/L Total Creatine Kinase (55-170) U/L CK-MB (CK-2) (<2.37) ng/mL CK-MB (CK-2) Rel Index (1.5-5.0) % Troponin I (0.01-0.034) ng/mL NT-Pro-B Natriuret Pep (<125) pg/mL Total Protein (6.3-8.2) g/dL Albumin (3.5-5.0) g/dL Globulin (1.7-4.1) g/dL Albumin/Globulin Ratio (1.0-2.8) Lipase (23-300) U/L Procalcitonin 0.07 (<0.5) ng/mL SARS-CoV-2 (PCR) Positive H (Negative) Discharge Plan Departure Patient Disposition: Admitted As Inpatient Clinical Impression: CHF (congestive heart failure), Atrial fibrillation with rapid ventricular response, COVID-19 virus infection Admit Date/Time: 09/13/20 19:21 Admit Provider: Sid Rodrigues
[2020-09-13 18:55] LABS: COVID19 - ADMIT (NP swab/PCR) POSITIVE (Negative)
[2020-09-13 19:44] LABS: Procalcitonin 0.07 ng/mL (<0.5)
[2020-09-13] MEDS: FUROSEMIDE 40 MG/4 ML VIAL IV (19:45)
--- NOTE | 2020-09-13 20:35 | PM.HP.1 ---
History of Present Illness History of Present Illness Date Patient Seen: 09/13/20 Time Patient Seen: 20:36 Chief complaint: SENT BY WALK IN CLINIC FOR POSSIBLE A FIB Narrative: 60-year-old male with a past medical history of hypertension hyperlipidemia and diabetes. Patient has been having problems with cough shortness of breath and now palpitations. Symptoms started on the or 09 of September. Patient states he was around family that tested positive for COVID. Had multiple chances for exposure. Patient is unvaccinated for COVID. Patient was seen in the walk-in clinic on the because of complaints of cough shortness of breath. Patient states his initial symptoms at that point began on actually on the 28 of August. Symptoms were very mild and then a 4 days before his visit on the walk-in clinic he was gradually getting worse. He describes shortness of breath with intermittent palpitations she had some increasing edema. Patient was doing well with ongoing cough productive sputum no specific temperature is although he says he has felt chills and low-grade. He has also had a change of taste. He has had decreased appetite. He has also had some ongoing nausea and vomiting. She had paroxysmal shortness of breath he has not had any significant severe chest pain radiating to his back or jaw. He is having some racing heart and increasing shortness of breath at times. Patient is an insulin-dependent diabetic. Having hard time with his blood sugars. Workup and evaluation in the emergency showed laboratory testing which was positive for COVID. Blood pressure 143/95 with pulse rate in the 150s to 160s. Temperature 98?.7. Heart rate telemetry monitoring showed patient to be in atrial fibrillation with rapid ventricular response. Patient was given an IV drip with diltiazem. Anti dose of metoprolol. I was contacted to evaluate the patient for admission to the hospital in ICU. Patient History Medical History Alcoholism in remission Anxiety DM type 2 (diabetes mellitus, type 2) (~2013) Foot pain Headache Hx of pancreatitis Hyperlipidemia Hypertension Kidney stone Right flank pain Vision disorder Surgical History Anesthesia Hx of appendectomy (~08/1974) Family & Social History Family History Mother Cancer Alzheimer disease Diabetes mellitus Mental health problem Thyroid disorder Father Cancer Diabetes mellitus Hyperlipidemia Hypertension Safety & Behavioral: Feels Safe in Current Yes Environment Been Physically Hurt or No Threatened By a Person Tobacco & Substance use: Smoking Status Former smoker alcohol intake former Substance Use Type does not use Meds Home Medications and Allergies Home Medications Medication Instructions Recorded Confirmed Type aspirin 81 mg tablet,delayed 81 mg PO DAILY 01/26/19 09/13/20 History release One Touch Ultra Test Strips #180 ea 02/16/20 09/13/20 Rx insulin syringes (disposable) 1 mL #500 each 02/16/20 09/13/20 Rx cyclobenzaprine 5 mg tablet 5 mg PO BID PRN #30 tab 02/25/20 09/13/20 Rx hydroxyzine HCl 25 mg tablet 25 mg PO BID PRN #30 tab 02/25/20 09/13/20 Rx metformin 1,000 mg tablet See Rx Instructions PO DAILY #225 02/25/20 09/13/20 Rx tab citalopram 20 mg tablet See Rx Instructions .ROUTE 03/18/20 09/13/20 Rx .COMPLEX #90 tab lovastatin 10 mg tablet 10 mg PO DAILY #90 tab 03/24/20 09/13/20 Rx lisinopril 5 mg tablet See Rx Instructions .ROUTE 05/05/20 09/13/20 Rx .COMPLEX #90 tab insulin NPH isoph U-100 human 100 See Rx Instructions .ROUTE 07/18/20 09/13/20 Rx unit/mL subcutaneous suspension .COMPLEX #30 milliliter (Humulin N NPH U-100 Insulin (isophane susp)) Allergies Allergy/AdvReac Type Severity Reaction Status Date / Time azithromycin AdvReac Verified 09/13/20 16:39 clindamycin [From Cleocin] AdvReac Verified 09/13/20 15:38 Exam Vital Signs (past 8 hours): - 09/13/20 16:33 09/13/20 17:42 09/13/20 18:00 Temperature 98.7 F Pulse Rate 82 157 H 154 H Respiratory Rate 18 20 18 Blood Pressure 143/95 H Pulse Oximetry 95 95 94 09/13/20 18:30 09/13/20 18:35 09/13/20 18:40 Temperature Pulse Rate 158 H 157 H 158 H Respiratory Rate 19 21 20 Blood Pressure Pulse Oximetry 93 94 95 09/13/20 18:45 07/20/21 18:46 09/13/20 18:47 Temperature Pulse Rate 157 H 156 H 155 H Respiratory Rate 21 17 14 Blood Pressure 169/84 H 169/84 H Pulse Oximetry 93 93 94 09/13/20 18:50 09/13/20 18:55 09/13/20 19:00 Temperature Pulse Rate 161 H 155 H 150 H Respiratory Rate 19 21 21 Blood Pressure 161/87 H Pulse Oximetry 94 95 95 09/13/20 19:05 09/13/20 19:10 09/13/20 19:15 Temperature Pulse Rate 155 H 160 H 157 H Respiratory Rate 23 18 20 Blood Pressure 159/100 H Pulse Oximetry 95 95 94 09/13/20 19:20 09/13/20 19:25 09/13/20 19:30 Temperature Pulse Rate 160 H 157 H 161 H Respiratory Rate 20 21 25 H Blood Pressure Pulse Oximetry 94 94 94 09/13/20 19:35 09/13/20 19:40 09/13/20 19:45 Temperature Pulse Rate 161 H 157 H 157 H Respiratory Rate 20 20 19 Blood Pressure Pulse Oximetry 95 95 94 09/13/20 19:49 09/13/20 19:50 09/13/20 19:55 Temperature Pulse Rate 153 H 155 H 157 H Respiratory Rate 19 19 21 Blood Pressure 157/87 H Pulse Oximetry 95 95 93 09/13/20 20:00 09/13/20 20:05 09/13/20 20:10 Temperature Pulse Rate 157 H 158 H 157 H Respiratory Rate 20 20 21 Blood Pressure Pulse Oximetry 94 95 93 Oxygen Delivery Method Room Air Narrative Exam Narrative: Gen.: [Alert and oriented x3 no apparent distress.] HEENT: [NCAT PERRLA tympanic membranes are clear nares are patent oral mucosa is moist no tonsillar hypertrophy neck is supple without lymphadenopathy no thyroid enlargement.] Cardio: [S1-S2 regular rate and rhythm no murmurs appreciated.] Respiratory: [Lungs are clear to auscultation no wheezes or crackles normal respiratory effort.] Abdomen: [Soft nontender no rebound or guarding no liver spleen enlargement no appreciable hernias] Extremities: [Full range of motion no appreciable weakness no cyanosis or edema.] Neurologic: [Grossly intact.] Objective Labs Result Diagrams: 09/13/20 17:30 09/13/20 17:30 Labs: Laboratory Results - last 24 hr 09/13/20 09/13/20 09/13/20 17:30 17:30 17:30 WBC 6.7 RBC 4.51 Hgb 13.5 Hct 38.4 L MCV 85.2 MCH 29.9 MCHC 35.1 RDW 13.2 Plt Count 398 Neut % (Auto) 58.2 Lymph % (Auto) 21.2 L [place] % (Auto) 18.5 H Eos % (Auto) 1.8 L Baso % (Auto) 0.3 Neut # (Auto) 3900 Lymph # (Auto) 1400 [place] # (Auto) 1200 H Eos # (Auto) 100 Baso # (Auto) 0 PT 14.0 H INR 1.2 APTT 29 Sodium 136 L Potassium 3.9 Chloride 105 Carbon Dioxide 25 BUN 11 Creatinine 0.58 L Estimated GFR > 60.0 BUN/Creatinine Ratio 19.0 Glucose 263 H Lactate Calcium 8.7 Magnesium 2.1 Total Bilirubin 0.9 AST 28 ALT 53 H Alkaline Phosphatase 93 Total Creatine Kinase 124 CK-MB (CK-2) 1.73 CK-MB (CK-2) Rel Index 1.4 L Troponin I < 0.012 NT-Pro-B Natriuret Pep 1110 H Total Protein 6.4 Albumin 3.2 L Globulin 3.2 Albumin/Globulin Ratio 1.0 Lipase 154 Procalcitonin SARS-CoV-2 (PCR) 09/13/20 09/13/20 09/13/20 17:30 17:30 18:00 WBC RBC Hgb Hct MCV MCH MCHC RDW Plt Count Neut % (Auto) Lymph % (Auto) [place] % (Auto) Eos % (Auto) Baso % (Auto) Neut # (Auto) Lymph # (Auto) [place] # (Auto) Eos # (Auto) Baso # (Auto) PT INR APTT Sodium Potassium Chloride Carbon Dioxide BUN Creatinine Estimated GFR BUN/Creatinine Ratio Glucose Lactate 1.2 Calcium Magnesium Total Bilirubin AST ALT Alkaline Phosphatase Total Creatine Kinase CK-MB (CK-2) CK-MB (CK-2) Rel Index Troponin I NT-Pro-B Natriuret Pep Total Protein Albumin Globulin Albumin/Globulin Ratio Lipase Procalcitonin 0.07 SARS-CoV-2 (PCR) Positive H Assessment & Plan Assessment & Plan narrative: COVID pneumonia patient with COVID pneumonia. Symptoms started August 28. Patient is unvaccinated. Symptoms have been progressive then stabilized and then started to improve.. Initial COVID test was negative current PCR test is positive. Patient still has moderate symptoms and an x-ray consistent with COVID pneumonia with viral pneumonitis. Patient is not significantly hypoxicrequiring 2 L of oxygen to maintain saturation.. But does have symptoms of shortness of breath with significant palpitations due to underlying atrial fib with rapid ventricular response. He is out of the window for treatment of remdesivir and dexamethasone for COVID. I Think a majority is symptoms are due to the underlying atrial fibrillation with rapid ventricular response exacerbated by his concomitant pneumonia. Will admit the patient to the hospital ICU status with contact precautions for COVID. He will be placed on Lovenox. And monitor closely in take and output. Acute Respiratory failure. Patient hypoxic requiring oxygenation. Combination of COVID pneumonia and his underlying atrial fibrillation with rapid ventricular response. Continue with nasal cannula oxygen monitor closely saturation and for decompensation. New onset Atrial fibrillation with rapid ventricular response. Exacerbated by pneumonia. Patient's heart rate was quite fast. Will keep him on IV Cardizem. He was also given a dose of IV metoprolol. Will continue with IV cardia exam He will be started on oral beta-blockers. Will try to gradually wean him off of the Cardizem drips once we can get his heart rate under control his blood pressure is certainly tolerating his medication at this point has been a little bit high. His cardiac enzyme is negative for cardiac ischemia. His BNP level is elevated most likely due to the underlying atrial fibrillation He is certainly a candidate for chronic anticoagulation due to his risk factors and COVID pneumonia. And will have a discussion with this and start him on appropriate anticoagulation. Will continue to monitor for signs and symptoms of cardiac ischemia. I would like to order an echocardiogram of his heart. Monitor closely his electrolytes including potassium order magnesium test for the morning. Insulin-dependent diabetes. Patient is insulin-dependent diabetic. Will start his home NPH insulin dosing lab insulin sliding scale coverage he will be written for a diabetic diet. Will monitor closely his blood sugar control and adjust his insulin appropriately. Essential hypertension. Patient is on antihypertensives outside the hospital. Will will continue to provide his home dose of lisinopril. Hyperlipidemia. Patient is on lovastatin 10 mg a day we will continue his lovastatin. Obesity with a BMI of 30. Consider morbid due to his compounding illnesses as well as diabetes and hypertension. Certainly makes him at high risk due to the COVID pneumonia.
--- NOTE | 2020-09-13 20:47 | DI.ECHO.S_ITS ---
[place] [facility]---------+ [facility] +---------+ : : [address] : : : : [id number] : : : : Phone: [phone]+ Echocardiogram Report + + :Name: REJI ALVARADO Study Date: 09/14/2020 Height: 74 in : :[facility] ReadingLocation: Weight: 240 lb : : Gender: Male BSA: 2.3 m2 : :: 1960 Age: 60 yrs BP: 107/67 mmHg: :Reason For Study: AFIB, COVID POSITIVE : :Ordering Physician: MATTHEW, : :JEFFREY Performed By: Lima Barahona : :Referring: JEFFREY CASTRO : + + Interpretation Summary Afib with controlled rate. Normal LV size and wall thickness. Mild global hypokinesis. EF is 35-40% Normal chamber sizes. No significant valvular abnormalities. Mildly dilated ascending aorta (measuring 4 cm diameter). No prior study available for comparison. Procedure: A two-dimensional transthoracic echocardiogram with color flow and Doppler was performed. The study quality was technically adequate. There is no prior echocardiogram noted for this patient. The patient was in atrial fibrillation with heart rates between 88-105 bpm during the exam. Left Ventricle: The left ventricle is normal in size and wall thickness. The ejection fraction is estimated to be 35-40%. Diastolic function could not be accurately assessed due to atrial fibrillation. Right Ventricle: The right ventricle is normal in size and function. Atria: Both atria are normal in size. There is no Doppler evidence for an interatrial shunt. Mitral Valve: The mitral valve leaflets appear mildly thickened, but open well. There is mild mitral annular calcification. There is mild mitral regurgitation. Aortic Valve: The aortic valve is trileaflet. The aortic valve opens well. The aortic valve is slightly calcified. There is no aortic valve stenosis. There is trace aortic regurgitation. Tricuspid Valve: The tricuspid valve is normal in structure and function. There is mild tricuspid regurgitation. Pulmonic Valve: The pulmonic valve is not well seen, but is grossly normal. There is no pulmonic valvular regurgitation. Great Vessels: The aortic root is normal size. The ascending aorta is mildly enlarged. The IVC is dilated (diameter is greater than 2.1 cm) and it collapses less than 50% with a sniff. This suggests a high right atrial pressure of 15 mm Hg. Pericardium/ Pleura There is no pericardial effusion. There is no pleural effusion. MMode/2D Measurements & Calculations LVIDd: 5.4 cm LVOT diam: 2.1 cm LVIDs: 4.4 cm Ao root diam: 3.7 cm FS: 18.9 % asc Aorta Diam: 4.0 cm IVSd: 0.90 cm Ao Arch Diam (Prox Trans): 3.6 cm LVPWd: 1.0 cm LV rae. diameter/BSA (cm/m^2): 2.3 LV sys. diameter/BSA (cm/m^2): 1.9 LA A2 area: 19.5 cm2 RA long axis: 5.0 cm LA A4 area: 18.0 cm2 RA area: 17.3 cm2 LA length (vol): 4.9 cm RA vol: 50.8 ml LA vol: 61.1 ml RA : 21.7 ml/m2 LA vol index: 26.0 ml/m2 IVC diam: 2.5 cm RVD1 (basal): 3.7 cm TAPSE: 2.0 cm Doppler Measurements & Calculations Ao V2 max: 119.8 cm/sec LVOT Max Kal: 99.5 cm/sec Ao V2 mean: 78.7 cm/sec LV V1 max P.0 mmHg Ao max P.7 mmHg LV V1 VTI: 17.1 cm Ao mean P.8 mmHg FLOR(I,D): 2.9 cm2 Ao V2 VTI: 20.9 cm FLOR(V,D): 3.0 cm2 sev ratio: 0.82 FLOR indexed to BSA (cm^2/m^2): 1.2 MV E max kal: 76.1 cm/sec TR max kal: 232.2 cm/sec MV A max kal: 2.4 cm/sec TR max P.6 mmHg MV E/A: 32.2 PA V2 max: 85.5 cm/sec Med Peak E' Kal: 8.3 cm/sec PA V2 mean: 55.4 cm/sec E/E' med: 9.2 PA mean P.4 mmHg Lat Peak E' Kal: 8.7 cm/sec PA Accel Time: 0.10 sec E/E' lat: 8.7 E/e' average: 8.9 MV P1/2t: 59.2 msec MV /2t max kal: 74.9 cm/sec SV(LVOT): 61.1 ml MVA(2t): 3.7 cm2 Electronically signed by: Adrienne Talamantes M.D. on Reading Physician:09/14/2020 05:49 PM
[2020-09-13] MEDS: SODIUM CHLORIDE 0.9% 1,000 ML 21 ML IV (22:16)
[2020-09-13] MEDS: LORazepam 2 MG/ML INJ 0.5 MG IV (22:16)
[2020-09-13] MEDS: METOPROLOL IR 25 MG TABLET PO (23:36)
[2020-09-13] MEDS: RIVAROXABAN 10 MG TABLET 5 MG PO (23:36)
[2020-09-13] MEDS: INSULIN LISPRO 100 UNIT/ML 3ML VIAL SUBCUT (23:37)
[2020-09-14] VITALS (36 sets, daily range): BP systolic 103–129; BP diastolic 63–88; PULSE 76–135; RESP 15–26; TEMP 36.8–37.6; O2SAT 92–95
--- NOTE | 2020-09-14 00:37 | PC.ADMIT ---
[id number] Admission Note: The patient,Fausto Phoenix,60 y/o, was given written information regarding hospital policies, unit procedures and contact persons. Patient's smoking status: Former smoker. Vital Signs - 8 hr 09/13/20 17:42 09/13/20 18:00 09/13/20 18:30 Temperature Pulse Rate 157 H 154 H 158 H Respiratory Rate 20 18 19 Blood Pressure Pulse Oximetry 95 94 93 09/13/20 18:35 09/13/20 18:40 09/13/20 18:45 Temperature Pulse Rate 157 H 158 H 157 H Respiratory Rate 21 20 21 Blood Pressure Pulse Oximetry 94 95 93 09/13/20 18:46 09/13/20 18:47 09/13/20 18:50 Temperature Pulse Rate 156 H 155 H 161 H Respiratory Rate 17 14 19 Blood Pressure 169/84 H 169/84 H Pulse Oximetry 93 94 94 09/13/20 18:55 09/13/20 19:00 09/13/20 19:05 Temperature Pulse Rate 155 H 150 H 155 H Respiratory Rate 21 21 23 Blood Pressure 161/87 H Pulse Oximetry 95 95 95 09/13/20 19:10 09/13/20 19:15 09/13/20 19:20 Temperature Pulse Rate 160 H 157 H 160 H Respiratory Rate 18 20 20 Blood Pressure 159/100 H Pulse Oximetry 95 94 94 09/13/20 19:25 09/13/20 19:30 09/13/20 19:35 Temperature Pulse Rate 157 H 161 H 161 H Respiratory Rate 21 25 H 20 Blood Pressure Pulse Oximetry 94 94 95 09/13/20 19:40 09/13/20 19:45 09/13/20 19:49 Temperature Pulse Rate 157 H 157 H 153 H Respiratory Rate 20 19 19 Blood Pressure 157/87 H Pulse Oximetry 95 94 95 09/13/20 19:50 09/13/20 19:55 09/13/20 20:00 Temperature Pulse Rate 155 H 157 H 157 H Respiratory Rate 19 21 20 Blood Pressure Pulse Oximetry 95 93 94 09/13/20 20:05 09/13/20 20:10 09/13/20 20:30 Temperature 98.9 F Pulse Rate 158 H 157 H 142 H Respiratory Rate 20 21 22 Blood Pressure 134/77 Pulse Oximetry 95 93 92 09/13/20 20:41 09/13/20 21:41 09/13/20 23:00 Temperature 98.9 F Pulse Rate 142 H 157 H 143 H Respiratory Rate 22 18 20 Blood Pressure 134/77 128/82 105/77 Pulse Oximetry 92 96 94 09/14/20 00:00 Temperature 99.1 F Pulse Rate 126 H Respiratory Rate 21 Blood Pressure 114/85 Pulse Oximetry 94 Patient admitted to ICU room 230 at 2030, placed in Droplet/Airborne precautions for COVID-19 positive test. A/Ox4, mildly anxious, he takes citalopram, IV lorazepam ordered and given per prn. He in on diltiazem gtt of 10mg/hr upon admit, but slow increased to 15mg/hr to get A-fib RVR rate 160s down, BP stable, see vital trends. Patient is steady, able to ambulate into BR with SBA, use urinal, and change into gown, denies pain, but is short of breath, RA 90%, placed on 2L NC.
--- NOTE | 2020-09-14 01:40 | PC.NURSE ---
0000-Ativan effective for patient, he was able to sleep, remains in A-fib RVR, 1st dose of metoprolol and Xeralto given as ordered, given in pudding, he says he gets nauseous from swallowing pills 2 units Lispro given for CBG 239.
[2020-09-14] MEDS: METOPROLOL IR 25 MG TABLET PO ×2 (05:06→09:12)
[2020-09-14] MEDS: dilTIAZem 125 MG in SODIUM CHLORIDE 0.9% 100 ML 10 ML IV (05:06)
--- NOTE | 2020-09-14 06:45 | P.PN_ITS ---
Subjective Subjective Date Patient Seen: 09/14/20 Time Patient Seen: 06:45 Interval history: Patient seen this morning. Did well overnight. Less tachycardic still in atrial fibrillation blood pressure is stable. 2 L of oxygen remaining obtaining sats into the mid to low 90s. He has been up out of bed. Able to go to the bathroom. Still weak. Tolerating diet. Blood pressures are better with his dose of metoprolol. Still feeling short of breath anxious and weak. Exam Vital Signs (past 8 hours): - 09/13/20 23:00 09/14/20 00:00 09/14/20 01:00 Temperature 99.1 F Pulse Rate 143 H 126 H 77 Respiratory Rate 20 21 20 Blood Pressure 105/77 114/85 111/74 Pulse Oximetry 94 94 93 09/14/20 02:00 09/14/20 03:00 09/14/20 04:00 Temperature Pulse Rate 78 76 94 H Respiratory Rate 24 21 20 Blood Pressure 103/74 111/67 107/67 Pulse Oximetry 94 93 93 09/14/20 05:00 09/14/20 05:06 09/14/20 06:00 Temperature 98.6 F 98.4 F Pulse Rate 123 H 134 H 103 H Respiratory Rate 20 21 Blood Pressure 126/80 116/70 113/75 Pulse Oximetry 93 93 Oxygen Delivery Method Nasal Cannula Oxygen Flow Rate 2 Narrative Exam Narrative: Gen.: Alert good historian HEENT: Pupils equal round reactive or mucosa is moist has nasal cannula oxygen. Cardio: S1-S2 irregular rate and rhythm Respiratory: Mild increased work of breathing. Breath sounds are clear. Abdomen: Soft nontender no rebound or guarding no liver spleen enlargement no appreciable hernias Extremities: Warm dry perfused no edema Neurologic: Grossly intact. Objective Labs Result Diagrams: 09/13/20 17:30 09/13/20 17:30 Labs: Laboratory Results - last 24 hr 09/13/20 09/13/20 09/13/20 17:30 17:30 17:30 WBC 6.7 RBC 4.51 Hgb 13.5 Hct 38.4 L MCV 85.2 MCH 29.9 MCHC 35.1 RDW 13.2 Plt Count 398 Neut % (Auto) 58.2 Lymph % (Auto) 21.2 L [place] % (Auto) 18.5 H Eos % (Auto) 1.8 L Baso % (Auto) 0.3 Neut # (Auto) 3900 Lymph # (Auto) 1400 [place] # (Auto) 1200 H Eos # (Auto) 100 Baso # (Auto) 0 PT 14.0 H INR 1.2 APTT 29 Sodium 136 L Potassium 3.9 Chloride 105 Carbon Dioxide 25 BUN 11 Creatinine 0.58 L Estimated GFR > 60.0 BUN/Creatinine Ratio 19.0 Glucose 263 H Lactate Calcium 8.7 Magnesium 2.1 Total Bilirubin 0.9 AST 28 ALT 53 H Alkaline Phosphatase 93 Total Creatine Kinase 124 CK-MB (CK-2) 1.73 CK-MB (CK-2) Rel Index 1.4 L Troponin I < 0.012 NT-Pro-B Natriuret Pep 1110 H Total Protein 6.4 Albumin 3.2 L Globulin 3.2 Albumin/Globulin Ratio 1.0 Lipase 154 Procalcitonin Nasal Screen MRSA (PCR) SARS-CoV-2 (PCR) 09/13/20 09/13/20 09/13/20 17:30 17:30 18:00 WBC RBC Hgb Hct MCV MCH MCHC RDW Plt Count Neut % (Auto) Lymph % (Auto) [place] % (Auto) Eos % (Auto) Baso % (Auto) Neut # (Auto) Lymph # (Auto) [place] # (Auto) Eos # (Auto) Baso # (Auto) PT INR APTT Sodium Potassium Chloride Carbon Dioxide BUN Creatinine Estimated GFR BUN/Creatinine Ratio Glucose Lactate 1.2 Calcium Magnesium Total Bilirubin AST ALT Alkaline Phosphatase Total Creatine Kinase CK-MB (CK-2) CK-MB (CK-2) Rel Index Troponin I NT-Pro-B Natriuret Pep Total Protein Albumin Globulin Albumin/Globulin Ratio Lipase Procalcitonin 0.07 Nasal Screen MRSA (PCR) SARS-CoV-2 (PCR) Positive H 09/13/20 21:32 WBC RBC Hgb Hct MCV MCH MCHC RDW Plt Count Neut % (Auto) Lymph % (Auto) [place] % (Auto) Eos % (Auto) Baso % (Auto) Neut # (Auto) Lymph # (Auto) [place] # (Auto) Eos # (Auto) Baso # (Auto) PT INR APTT Sodium Potassium Chloride Carbon Dioxide BUN Creatinine Estimated GFR BUN/Creatinine Ratio Glucose Lactate Calcium Magnesium Total Bilirubin AST ALT Alkaline Phosphatase Total Creatine Kinase CK-MB (CK-2) CK-MB (CK-2) Rel Index Troponin I NT-Pro-B Natriuret Pep Total Protein Albumin Globulin Albumin/Globulin Ratio Lipase Procalcitonin Nasal Screen MRSA (PCR) Negative for mrsa SARS-CoV-2 (PCR) PFSH Medical History Alcoholism in remission Anxiety DM type 2 (diabetes mellitus, type 2) (~2013) Foot pain Headache Hx of pancreatitis Hyperlipidemia Hypertension Kidney stone Right flank pain Vision disorder Surgical History Anesthesia Hx of appendectomy (~08/1974) Family History Mother Cancer Alzheimer disease Diabetes mellitus Mental health problem Thyroid disorder Father Cancer Diabetes mellitus Hyperlipidemia Hypertension Social History marital status: household members: spouse occupational status: previously employed Smoking Status: Former smoker alcohol intake: former caffeine: Yes Assessment & Plan Assessment & Plan narrative: New onset Atrial fibrillation with rapid ventricular response. Patient on Cardizem drips. Starting to receive oral metoprolol Cardizem dose is come down. His heart rates in the mid 100s now. Will gradually make changes to his beta-renan dose to see if we can get better control and the switch him from IV medication to oral medications. He is on immediate release metoprolol 25 mg q.6 hours will increase to 50 mg. Due to patient's risk factors. Going in and out of atrial fibrillation age and multiple comorbid illnesses. Elected to start him on anticoagulation with Xarelto at 5 mg twice daily. COVID pneumonia. Patient is out of the window needing treatment with remdesivir and dexamethasone. X-ray consistent with pneumonitis look still hypoxic requiring a little bit of oxygen. Mild respiratory failure due to this. Certainly is increased is likely headed of atrial fibrillation. I doubt other bacterial infection as procalcitonin is in normal. He is afebrile and his white blood cell count lactic acid are normal. Insulin-dependent diabetes. Patient on oral metformin which has been held. He is on his NovoLog insulin and insulin sliding scale diabetic diet. Blood sugars a.c. and HS. Essential hypertension. Patient is hypertensive. Outpatient he is on lisinopril. This has been restarted. Will go ahead and stop that as he is getting a lot of beta-blockers and calcium channel blockers will hold his l isinopril to allow for better blood pressure while we adjust his medications. Hyperlipidemia. Patient will be continued on his lovastatin. Obesity. Patient has a BMI of 30. Makes him high risk for complications due to COVID as well as atrial fibrillation Disposition and plan. Continue to adjust his beta-renan continue with anticoagulation oxygen for hypoxia. Echocardiogram for further evaluation of his heart. Repeat laboratory testing anticipate hospitalization for another few days patient will go home. Quality VTE Deep Vein Thrombosis/Pulmonary Embolism Present on Admission: No
[2020-09-14 07:20] LABS: Add Manual Diff / Slide Review NO; Basophils Absolute Auto 0 /uL (0-100); Basophils Percent Auto 0.2 % (0-2); Eosinophils Absolute Auto 100 /uL (0-450); Eosinophils Percent Auto 1.3 % (2-4); Hematocrit 37.1 % (41-53); Hemoglobin 12.8 g/dL (13.5-17.5); Lymphocytes Absolute Auto 1000 /uL (1100-4500); Mean Corpuscular HGB Conc 34.6 % (30-36); Mean Corpuscular Hemoglobin 29.9 PG (26-34); Mean Corpuscular Volume 86.2 fL (80-100); Monocytes Absolute Auto 1200 /uL (0-900); Monocytes Percent Auto 16.5 % (3-14); Neutrophils Absolute Auto 5100 /uL (1500-7000); Platelet Count 324 X10^3/uL (150-400); Red Cell Distribution Width 13.3 % (11.6-14.8); White Blood Cell Count 7.4 X10^3/uL (4.5-11.0)
[2020-09-14 07:31] LABS: INR 1.4 (0.9-1.3); Prothrombin Time 16.4 SECONDS (10.1-12.7)
[2020-09-14 07:35] LABS: Magnesium 2.1 mg/dL (1.6-2.3)
[2020-09-14 07:39] LABS: Alanine Aminotransferase 46 IU/L (<50); Alkaline Phosphatase 77 U/L (38-126); Aspartate Aminotransferase 40 IU/L (17-59); BUN Creatinine Ratio 19.3 (6-22); Bilirubin Total 0.9 mg/dL (0.2-1.3); Blood Urea Nitrogen 11 mg/dL (9-20); Calcium 8.5 mg/dL (8.4-10.2); Carbon Dioxide 26 mmol/L (22-32); Chloride 107 mmol/L (98-107); Estimated Glomerular Filt Rate > 60.0 mL/min (>60); Globulin 3.1 g/dL (1.7-4.1); Glucose 250 mg/dL (80-110); HEMOLYSIS 25 (0-50); Potassium 3.9 mmol/L (3.4-5.1); Sodium 137 mmol/L (137-145); Total Protein 6.1 g/dL (6.3-8.2)
[2020-09-14 07:46] LABS: Troponin I < 0.012 ng/mL (0.01-0.034)
[2020-09-14] MEDS: INSULIN LISPRO 100 UNIT/ML 3ML VIAL SUBCUT ×4 (08:09→20:47)
[2020-09-14] MEDS: INSULIN NPH 100 UNIT/ML VIAL 30 UNIT SUBCUT ×2 (08:09→17:02)
[2020-09-14] MEDS: RIVAROXABAN 10 MG TABLET 5 MG PO ×2 (08:12→17:01)
[2020-09-14] MEDS: PANTOPRAZOLE 40 MG VIAL IV (08:13)
[2020-09-14] MEDS: CITALOPRAM 10 MG TABLET 20 MG PO (08:13)
[2020-09-14] MEDS: lisinopriL 5 MG TABLET PO (08:13)
--- NOTE | 2020-09-14 09:37 | PC.NURSE ---
Addendum entered by Lewis Palomares R.N. 09/14/20 14:43: Spoke with Dr. Rodrigues via phone. Reported dilt gtt off, HR ranges 90s-110 Afib. Reported pt on 1L NC with SPO2 94%. Reported elevated blood sugars. Orders received to increase correctional insulin (see orders). Addendum entered by Lewis Palomares R.N. 09/14/20 13:49: Titrated dilt gtt to off. Pt is maintaining HRs 80s-90s, Afib CVR. Does have occasional increases to less than 110 with coughing but is self-limiting and quickly normalizes at rest. Remains on 2L NC with SPO2 93-95%. Gave liquid tylenol per pt request for generalized aches with good effect. Addendum entered by Lewis Palomares R.N. 09/14/20 12:25: Pt's brought pt underwear (to ED entrance). Pt's wallet given to to take home. Original Note: On initial assessment, pt with HR 110s Afib on bedside monitor. BP stable. Requesting to get OOB to chair for breakfast. SBA up to chair for breakfast. After resting a few minutes, HR trending up to 130s and sustaining. Pt denies symptoms of chest pain/pressure/palpitations. BP stable. Spoke with Dr. Rodrigues regarding HR. Reviewed rate control medications. Orders received to give one time dose of metoprolol IR 25 mg NOW which was given. Educated pt to pulmonary hygiene, A fib, rate control meds. Provided I.S. Pt able to get up to 1500 ML with 3 attempts. Instructed pt to use 10 x/hr while awake. Pt remains up to chair after breakfast per request I'm really comfortable right now. SPO2 92-94% on 2L NC. Call light in easy reach.
[2020-09-14] MEDS: METOPROLOL IR 25 MG TABLET 50 MG PO ×2 (11:54→17:01)
[2020-09-14] MEDS: ACETAMINOPHEN SUSP 650 MG/20.3 ML UDC PO (12:22)
--- NOTE | 2020-09-14 15:49 | CM.DANOTE ---
Patient is a 60 year old male who was admitted on 09/13/20 for AFIB. Pt has [employer] for insurance and his PCP is Dr. Shanna Yu. EMR was reviewed. Per MD, pt with some AFIB but also tested positive for COVID pneumonia and not covid vaccinated. Pt remains somewhat tachy this morning and has been on 2L oxygen and remains weak and SOB with limited appetite and not stable for d/c yet today. SW attempted calling pt in his room but no answer. Per RN, pt has been up sitting in bed with ability to wean pt's oxygen down some but fatigues easily. Echo ordered and pending. SW called pt's spouse and spoke briefly and she confirms that they live at home in [place] and pt is independent at baseline with ADL's and no home oxygen at baseline. Spouse dropped off and picked up some of pt's belongings today and so far does not have symptoms of COVID herself. Plan: SW to follow closely for likely plan of d/c home with spouse pending progress and for any further identified discharge planning needs. 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 Yes Advance Directives on File No History Provided By Patient,Family Member,Medical Record Has Patient been admitted in last 30 No days? Prior Living Arrangements House Household Members spouse Type of transporation used prior to Drives own vehicle admit Independent with ADL's Yes Is patient alert and oriented? Yes Caregiver for Another No Discharge Plan Home Transportation Arrangement Spouse likely to provide transport at d/c Additional Comment Pending pt progress with oxygen and AFIB needs Review Status In Process Please Provide Date Initial DC 09/14/20 Assessment Was Performed Next Review Type Continued Stay Review
[2020-09-14] MEDS: METOPROLOL ER 50 MG TABLET 100 MG PO (20:46)
[2020-09-14] MEDS: ATORVASTATIN 20 MG TABLET 10 MG PO (20:46)
[2020-09-14] MEDS: MELATONIN 3 MG TABLET PO (20:46)
[2020-09-14] MEDS: SODIUM CHLORIDE 0.9% FLUSH 10 ML IV (20:48)
--- NOTE | 2020-09-14 21:40 | PC.NURSE ---
Patient up in the chair most of the shift. Up independently to bathroom and bed. Patient has been on RA since 1610 w/ o2 sats 89-93%. Heart rate 90s-120s and taking po Metoprolo. Patient has been A&O, calm and cooperative.
[2020-09-15] VITALS (22 sets, daily range): BP systolic 115–135; BP diastolic 67–87; PULSE 76–153; RESP 16–18; TEMP 36.6–37.4; O2SAT 88–97
[2020-09-15] MEDS: LORazepam 2 MG/ML INJ 0.25 MG IV (04:31)
[2020-09-15] MEDS: ACETAMINOPHEN SUSP 650 MG/20.3 ML UDC PO (04:31)
--- NOTE | 2020-09-15 05:03 | PC.NURSE ---
Addendum entered by Gladis Mathis R.N. 09/15/20 06:49: Pt's B/P 122/67 and HR AFIB running between 90-115 BPM. Original Note: Pt's HR noted to steadily increase to AFIB 130s-150s. Approx 0425, BP WNL, 117/77. SPO2 90% 1L NC, raised to 2L NC w/ corresponding increase in SPO2 at 95%. Temp at 99.3? F, given tylenol 650 mg PRN. Denied pain. Given prn ativan to assist in possibly lowering HR if d/t anxiety related reasons. No change noted. On-call provider Lilia notified at 0500, given orders for 50 mg IR metoprolol to be administered.
[2020-09-15] MEDS: METOPROLOL IR 50 MG TABLET PO (05:11)
[2020-09-15 06:55] LABS: Add Manual Diff / Slide Review NO; Basophils Absolute Auto 0 /uL (0-100); Basophils Percent Auto 0.3 % (0-2); Eosinophils Absolute Auto 100 /uL (0-450); Eosinophils Percent Auto 1.5 % (2-4); Hematocrit 35.4 % (41-53); Hemoglobin 11.9 g/dL (13.5-17.5); Lymphocytes Absolute Auto 1200 /uL (1100-4500); Lymphocytes Percent Auto 14.1 % (25-40); Mean Corpuscular HGB Conc 33.8 % (30-36); Mean Corpuscular Hemoglobin 29.2 PG (26-34); Mean Corpuscular Volume 86.6 fL (80-100); Monocytes Absolute Auto 1300 /uL (0-900); Monocytes Percent Auto 15.4 % (3-14); Neutrophils Absolute Auto 6000 /uL (1500-7000); Neutrophils Percent Auto 68.7 % (50-75); Platelet Count 297 X10^3/uL (150-400); Red Blood Cell Count 4.09 X10^6/uL (4.5-5.9); Red Cell Distribution Width 13.9 % (11.6-14.8); White Blood Cell Count 8.7 X10^3/uL (4.5-11.0)
[2020-09-15 07:04] LABS: Alanine Aminotransferase 39 IU/L (<50); Albumin 2.7 g/dL (3.5-5.0); Albumin Globulin Ratio 0.9 (1.0-2.8); Alkaline Phosphatase 76 U/L (38-126); Aspartate Aminotransferase 22 IU/L (17-59); BUN Creatinine Ratio 18.8 (6-22); Bilirubin Total 0.8 mg/dL (0.2-1.3); Blood Urea Nitrogen 12 mg/dL (9-20); Calcium 8.2 mg/dL (8.4-10.2); Carbon Dioxide 30 mmol/L (22-32); Chloride 105 mmol/L (98-107); Estimated Glomerular Filt Rate > 60.0 mL/min (>60); Globulin 3.1 g/dL (1.7-4.1); Glucose 180 mg/dL (80-110); HEMOLYSIS 16 (0-50); Sodium 135 mmol/L (137-145); Total Protein 5.8 g/dL (6.3-8.2)
[2020-09-15] MEDS: SODIUM CHLORIDE 0.9% FLUSH 10 ML IV ×2 (08:20→22:00)
[2020-09-15] MEDS: METOPROLOL ER 50 MG TABLET 100 MG PO (08:20)
[2020-09-15] MEDS: RIVAROXABAN 10 MG TABLET 5 MG PO (08:21)
[2020-09-15] MEDS: CITALOPRAM 10 MG TABLET 20 MG PO (08:22)
[2020-09-15] MEDS: lisinopriL 5 MG TABLET PO (08:22)
[2020-09-15] MEDS: PANTOPRAZOLE 40 MG VIAL IV (08:22)
[2020-09-15] MEDS: INSULIN LISPRO 100 UNIT/ML 3ML VIAL SUBCUT ×4 (08:26→21:55)
[2020-09-15] MEDS: INSULIN NPH 100 UNIT/ML VIAL 30 UNIT SUBCUT ×3 (08:26→21:56)
[2020-09-15] MEDS: METOPROLOL ER 50 MG TABLET PO (08:49)
--- NOTE | 2020-09-15 08:50 | P.PN_ITS ---
Subjective Subjective Date Patient Seen: 09/15/20 Time Patient Seen: 07:50 Interval history: The pt reports that he continues to feel very fatigued. He feels his SOB is slightly improved. He denies any palpitations or chest pain. As per nursing, the pts HR did increase significantly overnight again. He received an additional 50mg of Metoprolol tartrate this morning, with limited benefit. Exam Vital Signs (past 8 hours): - 09/15/20 04:15 09/15/20 04:31 09/15/20 05:05 Temperature 99.3 F 99.3 F Pulse Rate 145 H Respiratory Rate 16 Blood Pressure 117/77 119/76 Pulse Oximetry 95 09/15/20 05:20 09/15/20 06:11 09/15/20 06:48 Temperature 97.9 F Pulse Rate 150 H 98 H 108 H Respiratory Rate Blood Pressure 119/76 122/67 Pulse Oximetry 92 09/15/20 08:00 09/15/20 08:20 09/15/20 08:22 Temperature 98.1 F Pulse Rate 122 H 146 H 146 H Respiratory Rate 18 Blood Pressure 126/87 126/87 Pulse Oximetry 93 Oxygen Delivery Method Nasal Cannula Oxygen Flow Rate 2 Narrative Exam Narrative: Gen: NAD, sitting comfortably in bed, appears fatigued, speaking in short sentences CV: irregularly irregular rhythm, tachycardic, no murmurs Resp: clear to auscultation bilaterally, no wheezes or crackles Abd: soft, nontender, nondistended Ext: no edema Objective Labs Result Diagrams: 09/15/20 06:30 09/15/20 06:30 Labs: Laboratory Results - last 24 hr 09/15/20 09/15/20 06:30 06:30 WBC 8.7 RBC 4.09 L Hgb 11.9 L Hct 35.4 L MCV 86.6 MCH 29.2 MCHC 33.8 RDW 13.9 Plt Count 297 Neut % (Auto) 68.7 Lymph % (Auto) 14.1 L [place] % (Auto) 15.4 H Eos % (Auto) 1.5 L Baso % (Auto) 0.3 Neut # (Auto) 6000 Lymph # (Auto) 1200 [place] # (Auto) 1300 H Eos # (Auto) 100 Baso # (Auto) 0 Sodium 135 L Potassium 4.0 Chloride 105 Carbon Dioxide 30 BUN 12 Creatinine 0.64 L Estimated GFR > 60.0 BUN/Creatinine Ratio 18.8 Glucose 180 H Calcium 8.2 L Total Bilirubin 0.8 AST 22 ALT 39 Alkaline Phosphatase 76 Total Protein 5.8 L Albumin 2.7 L Globulin 3.1 Albumin/Globulin Ratio 0.9 L PFSH Medical History Alcoholism in remission Anxiety DM type 2 (diabetes mellitus, type 2) (~2013) Foot pain Headache Hx of pancreatitis Hyperlipidemia Hypertension Kidney stone Right flank pain Vision disorder Surgical History Anesthesia Hx of appendectomy (~08/1974) Family History Mother Cancer Alzheimer disease Diabetes mellitus Mental health problem Thyroid disorder Father Cancer Diabetes mellitus Hyperlipidemia Hypertension Social History marital status: household members: spouse occupational status: previously employed Smoking Status: Former smoker alcohol intake: former caffeine: Yes Assessment & Plan Assessment & Plan narrative: 60yo man with DM type 2, HTN, and hyperlipidemia who presented with cough, SOB, and palpitations. 1) Atrial fibrillation with RVR: Rate had improved yesterday, now worsened again. Off Cardizem drip. - Increase Metoprolol succinate to 150mg BID - Consulted Cardiology, Dr Kirby - Start Digoxin, 0.25mg q6hr IV x 4 doses, then transition to 0.125mg daily - Digoxin level in 5-7 days - Transition to Eliquis from Xarelto - Restart Lisinopril or Captopril low-dose as BP allows - Will need perfusion study outside the hospital - Will likely benefit from Spirinolactone later 2) COVID pneumonia: Oxygen requirement stable on 2L. No evidence of overlying bacterial infection without elevated WBC count, negative procalcitonin. - Out of window for treatment with Remdesivir and Dexamethasone - Continue supportive care 3) Systolic CHF: EF 35-40% on Echo yesterday. New diagnosis. - No evidence of acute exacerbation. Lung sounds clear, unlikely contributing to hypoxia. - Cardiology recommendations as above 4) Diabetes Type 2: - Continue to hold home Metformin - Continue home NPH and sliding scale coverage - ACHS sugar checks 5) HTN: BP stable - Continue Metoprolol - Restart ACEi as able as per Cardiology 6) Hyperlipidemia: - Continue Lovastatin 7) Obesity: High risk for complications due to COVID FEN: Diabetic diet DVT ppx: on Eliquis Code: Full Dispo: Pending HR control and improvement in hypoxia. Anticipate another couple days. COVID-19 COVID-19 status: Positive Quality VTE Deep Vein Thrombosis/Pulmonary Embolism Present on Admission: No
[2020-09-15] MEDS: DIGOXIN 500 MCG/2 ML AMPUL 250 MCG IV ×3 (10:27→23:25)
--- NOTE | 2020-09-15 17:38 | PC.NURSE ---
SHIFT Report received, care assumed 1530. Pt. dozing, arousable. Oxygen saturation 88-90% on room air while sleeping; placed on 1LNC. Intermittent coughing, pt able to clear secretions. Pt denies pain, reports sensation of heart racing; heart rate fluctuating but roughly 100 bpm. Pt. moving about the room independently, appropriately, steady on feet.
[2020-09-15] MEDS: METOPROLOL ER 50 MG TABLET 150 MG PO (21:58)
[2020-09-15] MEDS: DOCUSATE 100 MG CAPSULE PO (21:59)
[2020-09-15] MEDS: ATORVASTATIN 20 MG TABLET 10 MG PO (21:59)
[2020-09-15] MEDS: APIXABAN 5 MG TABLET PO (21:59)
[2020-09-15] MEDS: MELATONIN 3 MG TABLET PO (21:59)
[2020-09-16] VITALS (11 sets, daily range): BP systolic 128–138; BP diastolic 76–85; PULSE 73–104; RESP 16–18; TEMP 36.9–37.6; O2SAT 93–97
[2020-09-16] MEDS: DIGOXIN 500 MCG/2 ML AMPUL 250 MCG IV (04:32)
[2020-09-16 05:27] LABS: Add Manual Diff / Slide Review NO; Basophils Absolute Auto 0 /uL (0-100); Basophils Percent Auto 0.3 % (0-2); Eosinophils Absolute Auto 100 /uL (0-450); Eosinophils Percent Auto 1.6 % (2-4); Hemoglobin 12.6 g/dL (13.5-17.5); Lymphocytes Absolute Auto 1400 /uL (1100-4500); Lymphocytes Percent Auto 17.8 % (25-40); Mean Corpuscular Hemoglobin 29.4 PG (26-34); Mean Corpuscular Volume 86.5 fL (80-100); Monocytes Absolute Auto 1200 /uL (0-900); Neutrophils Absolute Auto 5300 /uL (1500-7000); Neutrophils Percent Auto 65.3 % (50-75); Platelet Count 284 X10^3/uL (150-400); Red Blood Cell Count 4.28 X10^6/uL (4.5-5.9); Red Cell Distribution Width 13.7 % (11.6-14.8); White Blood Cell Count 8.1 X10^3/uL (4.5-11.0)
[2020-09-16 05:34] LABS: Alanine Aminotransferase 37 IU/L (<50); Albumin 2.7 g/dL (3.5-5.0); Albumin Globulin Ratio 0.9 (1.0-2.8); Alkaline Phosphatase 78 U/L (38-126); Aspartate Aminotransferase 26 IU/L (17-59); BUN Creatinine Ratio 19.1 (6-22); Bilirubin Total 0.7 mg/dL (0.2-1.3); Blood Urea Nitrogen 13 mg/dL (9-20); Calcium 8.5 mg/dL (8.4-10.2); Carbon Dioxide 28 mmol/L (22-32); Chloride 107 mmol/L (98-107); Estimated Glomerular Filt Rate > 60.0 mL/min (>60); Globulin 3.1 g/dL (1.7-4.1); Glucose 113 mg/dL (80-110); HEMOLYSIS < 15 (0-50); Sodium 137 mmol/L (137-145); Total Protein 5.8 g/dL (6.3-8.2)
[2020-09-16] MEDS: PANTOPRAZOLE DR 40 MG TABLET PO (06:02)
[2020-09-16] MEDS: DOCUSATE 100 MG CAPSULE PO (08:52)
[2020-09-16] MEDS: APIXABAN 5 MG TABLET PO ×2 (08:52→21:00)
[2020-09-16] MEDS: CITALOPRAM 10 MG TABLET 20 MG PO (08:52)
[2020-09-16] MEDS: METOPROLOL ER 50 MG TABLET 150 MG PO ×2 (08:53→21:01)
[2020-09-16] MEDS: lisinopriL 5 MG TABLET PO (08:53)
[2020-09-16] MEDS: SODIUM CHLORIDE 0.9% FLUSH 10 ML IV ×2 (08:54→21:02)
[2020-09-16] MEDS: INSULIN LISPRO 100 UNIT/ML 3ML VIAL SUBCUT ×3 (08:56→17:20)
--- NOTE | 2020-09-16 14:57 | PM.PN.1 ---
Subjective Subjective Date Patient Seen: 09/16/20 Time Patient Seen: 08:00 Interval history: Pt reports that he is feeling improved today. He feels that his SOB has diminished. Continues to deny any chest pain. His cough has improved as well. Exam Vital Signs (past 8 hours): - 09/16/20 08:42 09/16/20 08:53 09/16/20 10:09 Temperature 98.7 F Pulse Rate 73 73 97 H Respiratory Rate 18 Blood Pressure 138/82 138/82 Pulse Oximetry 93 94 09/16/20 12:39 Temperature 99.2 F Pulse Rate 74 Respiratory Rate 18 Blood Pressure 128/76 Pulse Oximetry 95 Oxygen Delivery Method Room Air Oxygen Flow Rate 0 Narrative Exam Narrative: Gen: NAD, sitting comfortably at bedside, appears well CV: irregularly irregular rhythm, normal rate, no murmurs Resp: clear to auscultation bilaterally Ext: no edema Objective Labs Result Diagrams: 09/16/20 05:11 09/16/20 05:11 Labs: Laboratory Results - last 24 hr 09/16/20 09/16/20 05:11 05:11 WBC 8.1 RBC 4.28 L Hgb 12.6 L Hct 37.0 L MCV 86.5 MCH 29.4 MCHC 34.0 RDW 13.7 Plt Count 284 Neut % (Auto) 65.3 Lymph % (Auto) 17.8 L [place] % (Auto) 15.0 H Eos % (Auto) 1.6 L Baso % (Auto) 0.3 Neut # (Auto) 5300 Lymph # (Auto) 1400 [place] # (Auto) 1200 H Eos # (Auto) 100 Baso # (Auto) 0 Sodium 137 Potassium 4.0 Chloride 107 Carbon Dioxide 28 BUN 13 Creatinine 0.68 Estimated GFR > 60.0 BUN/Creatinine Ratio 19.1 Glucose 113 H Calcium 8.5 Total Bilirubin 0.7 AST 26 ALT 37 Alkaline Phosphatase 78 Total Protein 5.8 L Albumin 2.7 L Globulin 3.1 Albumin/Globulin Ratio 0.9 L PFSH Medical History Alcoholism in remission Anxiety DM type 2 (diabetes mellitus, type 2) (~2013) Foot pain Headache Hx of pancreatitis Hyperlipidemia Hypertension Kidney stone Right flank pain Vision disorder Surgical History Anesthesia Hx of appendectomy (~08/1974) Family History Mother Cancer Alzheimer disease Diabetes mellitus Mental health problem Thyroid disorder Father Cancer Diabetes mellitus Hyperlipidemia Hypertension Social History marital status: household members: spouse occupational status: previously employed Smoking Status: Former smoker alcohol intake: former caffeine: Yes Assessment & Plan Assessment & Plan narrative: 60yo man with DM type 2, HTN, and hyperlipidemia who presented with cough, SOB, and palpitations. 1) Atrial fibrillation with RVR: Rate improved on Digoxin, however remains variable. - Continue Metoprolol succinate at 150mg BID - Consulted Cardiology, Dr Kirby, yesterday - S/P Digoxin 1mg IV loading dose over last 24hrs - Digoxin 0.125mg daily - Digoxin level in 5-7 days - Continue Eliquis - Restart Lisinopril or Captopril low-dose as BP allows - Will need perfusion study outside the hospital - Will likely benefit from Spirinolactone later 2) COVID pneumonia: Oxygen requirement stable on 1L overnight. Was able to spend much of yesterday on room air. No evidence of overlying bacterial infection without elevated WBC count, negative procalcitonin. - Out of window for treatment with Remdesivir and Dexamethasone - Continue supportive care 3) Systolic CHF: EF 35-40% on Echo yesterday. New diagnosis. - No evidence of acute exacerbation. Lung sounds clear, unlikely contributing to hypoxia. - Cardiology recommendations as above 4) Diabetes Type 2: BS are elevated - Continue to hold home Metformin - Continue home NPH, increase to 32 units, and sliding scale coverage - ACHS sugar checks 5) HTN: BP stable - Continue Metoprolol - Restart ACEi as able as per Cardiology 6) Hyperlipidemia: - Continue Lovastatin 7) Obesity: High risk for complications due to COVID FEN: Diabetic diet DVT ppx: on Eliquis Code: Full Dispo: Pending HR control and improvement in hypoxia. Anticipate possible d/c tomorrow. Quality VTE Deep Vein Thrombosis/Pulmonary Embolism Present on Admission: No
[2020-09-16] MEDS: INSULIN NPH 100 UNIT/ML VIAL 32 UNIT SUBCUT (17:22)
[2020-09-16] MEDS: DIGOXIN 0.125 MG TABLET PO (17:25)
[2020-09-16] MEDS: ATORVASTATIN 20 MG TABLET 10 MG PO (21:00)
[2020-09-16] MEDS: MELATONIN 3 MG TABLET PO (21:01)
--- NOTE | 2020-09-16 22:55 | PC.NURSE ---
A&OX4, able to make needs known RA 96% LS with Crackles at bases bilateral, clears with deep breaths, voids adequately LBM 09/16/20 normal for patient. Pt c/o mild ache and swelling to RUE just above AC space no redness noted ice applied > MD aware will continue to monitor
[2020-09-17 01:00] VITALS: BP 113/69; PULSE 87; RESP 18; TEMP 36.7; O2SAT 94
[2020-09-17 05:25] VITALS: BP 138/81; PULSE 87; RESP 18; TEMP 36.8; O2SAT 95
[2020-09-17] MEDS: PANTOPRAZOLE DR 40 MG TABLET PO (06:23)
[2020-09-17 08:50] VITALS: BP 131/80; PULSE 83; RESP 16; TEMP 36.6; O2SAT 94
[2020-09-17] MEDS: INSULIN LISPRO 100 UNIT/ML 3ML VIAL SUBCUT ×2 (08:51→12:14)
[2020-09-17] MEDS: INSULIN NPH 100 UNIT/ML VIAL 32 UNIT SUBCUT (08:52)
[2020-09-17] MEDS: SODIUM CHLORIDE 0.9% FLUSH 10 ML IV (08:54)
[2020-09-17 08:59] VITALS: PULSE 83
[2020-09-17] MEDS: APIXABAN 5 MG TABLET PO (08:59)
[2020-09-17] MEDS: METOPROLOL ER 50 MG TABLET 150 MG PO (08:59)
[2020-09-17] MEDS: DOCUSATE 100 MG CAPSULE PO (08:59)
[2020-09-17] MEDS: lisinopriL 5 MG TABLET PO (08:59)
[2020-09-17] MEDS: CITALOPRAM 10 MG TABLET 20 MG PO (08:59)
[2020-09-17 10:07] VITALS: PULSE 99
--- NOTE | 2020-09-17 11:45 | CM.DPC ---
Addendum entered by Leatha Miramontes LPN 09/17/20 15:13: Dr. Hill, rounding today for Dr. Yu has ok'd pt for d/c to home today. Checked in with SHELLI Mathias to see what may be needed. He reports that pt has already called his who is on her way to take him home. Final d/c instructions will be from the on-coming arnold MARQUES. Plan is followup with PCP Dr. Yu. Original Note: DCP: continued: case received, EMR reviewed and spoke with SHELLI Mathias, caring for pt today. Noted that senior sql developer Dr. Reich was consulted 09/15 for recommendations [address] Dr. Yu's/pt's PCP stated in her progress note of yesterday that pt will likely be ready for d/c home today. Pt is up independently in the room; is on room air with no current need for supplemental oxygen. SHELLI Mathias says he is expressing eagerness to go home. Dr. Yu is expected to see pt at some point today. P: home when stable for same, likely later today.
[2020-09-17 11:50] VITALS: BP 131/80; PULSE 97; RESP 20; TEMP 36.5; O2SAT 93
[2020-09-17 12:04] LABS: Add Manual Diff / Slide Review NO; Basophils Absolute Auto 0 /uL (0-100); Basophils Percent Auto 0.5 % (0-2); Eosinophils Absolute Auto 100 /uL (0-450); Eosinophils Percent Auto 1.9 % (2-4); Hematocrit 38.2 % (41-53); Hemoglobin 13.2 g/dL (13.5-17.5); Lymphocytes Absolute Auto 1500 /uL (1100-4500); Lymphocytes Percent Auto 21.1 % (25-40); Mean Corpuscular HGB Conc 34.4 % (30-36); Mean Corpuscular Hemoglobin 29.7 PG (26-34); Mean Corpuscular Volume 86.3 fL (80-100); Monocytes Absolute Auto 900 /uL (0-900); Monocytes Percent Auto 12.1 % (3-14); Neutrophils Absolute Auto 4700 /uL (1500-7000); Neutrophils Percent Auto 64.4 % (50-75); Platelet Count 321 X10^3/uL (150-400); Red Blood Cell Count 4.43 X10^6/uL (4.5-5.9); Red Cell Distribution Width 13.7 % (11.6-14.8); White Blood Cell Count 7.3 X10^3/uL (4.5-11.0)
[2020-09-17 12:36] LABS: Alanine Aminotransferase 45 IU/L (<50); Albumin 3.1 g/dL (3.5-5.0); Albumin Globulin Ratio 0.9 (1.0-2.8); Alkaline Phosphatase 86 U/L (38-126); Aspartate Aminotransferase 33 IU/L (17-59); BUN Creatinine Ratio 18.4 (6-22); Bilirubin Total 0.7 mg/dL (0.2-1.3); Blood Urea Nitrogen 14 mg/dL (9-20); Calcium 9.2 mg/dL (8.4-10.2); Carbon Dioxide 24 mmol/L (22-32); Chloride 107 mmol/L (98-107); Estimated Glomerular Filt Rate > 60.0 mL/min (>60); Globulin 3.3 g/dL (1.7-4.1); Glucose 245 mg/dL (80-110); HEMOLYSIS < 15 (0-50); Potassium 4.7 mmol/L (3.4-5.1); Sodium 137 mmol/L (137-145); Total Protein 6.4 g/dL (6.3-8.2)
[2020-09-17 12:43] LABS: NT-proBNP (BNP-Adult 18+) 928 pg/mL (<125)
--- NOTE | 2020-09-17 13:52 | P.DS_ITS ---
History of Present Illness History of Present Illness Date Patient Seen: 09/17/20 Time Patient Seen: 13:52 Chief complaint: SENT BY WALK IN CLINIC FOR POSSIBLE A FIB Narrative: 60-year-old male with a past medical history of hypertension, hyperlipidemia, and diabetes. Patient has been having problems with cough, shortness of breath, and now palpitations. Symptoms started on the or 09 of September. Patient states he was around family that tested positive for COVID. Had multiple chances for exposure. Patient is unvaccinated for COVID. Patient was seen in the walk-in clinic on the because of complaints of cough shortness of breath. Patient states his initial symptoms at that point began actually on the 28 of August. Symptoms were very mild and then 4 days before his visit at the walk-in clinic, he was gradually getting worse. He describes lashaun rtness of breath with intermittent palpitations and had some increasing edema. Patient was doing well with ongoing cough, productive of sputum with no specific temperature although he says he has felt chills and low-grade fever. He has also had a change of taste. He has had decreased appetite. He has also had some ongoing nausea and vomiting. He had paroxysmal shortness of breath and has not had any significant or severe chest pain radiating to his back or jaw. He is having some racing heart and increasing shortness of breath at times. Patient is an insulin-dependent diabetic. Having a hard time with his blood sugars. Workup and evaluation in the emergency showed laboratory testing which was positive for COVID. Blood pressure 143/95 with pulse rate in the 150s to 160s. Temperature 98?.7. Heart rate telemetry monitoring showed patient to be in atrial fibrillation with rapid ventricular response. Patient was given an IV drip with diltiazem. After dose of metoprolol, I was contacted to evaluate the patient for admission to the hospital in ICU. Discharge Providers Provider Date of admission: 09/13/20 19:21 Discharge Date: 09/17/20 Primary care physician: Shanna Yu MD Consults: Dr. Contreras, cardiology Discharge provider: Rosalba Hill MD Summary Hospital Course Discharge Diagnosis: 1) Atrial fibrillation with RVR, improved 2) COVID pneumonia, resolving 3) Systolic CHF: EF 35-40% on Echo yesterday. New diagnosis. 4) Diabetes Type 2, chronic 5) HTN, chronic 6) Hyperlipidemia 7) Obesity Hospital Course: Hospital course significant for difficulty with getting his atrial fibrillation and ventricular rate under control. Dr. Contreras, cardiology, was consulted and patient was initially placed on IV diltiazem drip and later transitioned to an oral dose with addition of metoprolol, digoxin, and eliquis. Home lisinopril was added back to achieve blood pressure control. His home metformin was held throughout his stay but home lantus was titrated along with short acting insulin to help control his sugars, which were labile. Inpatient echo revealed an ejection fraction of 35-40% giving him a new diagnosis of systolic congestive heart failure. Admission BNP 1110, discharge 928. 24 hours prior to discharge, his average heart rate was between 70-80 with a few outliers. He has been 100% rate controlled in the last 12 hours. He has been off oxygen for more than 24 hours. He is otherwise afebrile with stable vital signs throughout. Clinically, he feels much better and denies any cough or shortness of breath. He is ambulating independently. Patient understands to call for follow-up in [address] Yu. Pending items for that visit include: 1. Care coordination with cardiology. 2. Digoxin level. 3. Perfusion study order. 4. Blood pressure check and possible EKG. May need addition of spironlactone. 5. Blood sugar review. 6. Possible BNP level depending on clinical status. Time spent on Discharge and Coordination of post-hospital care: 35 minutes Status at Discharge Cognitive/behavioral status at discharge: at baseline, oriented Exam Vital Signs (past 8 hours): - 09/17/20 08:50 09/17/20 08:59 09/17/20 10:07 Temperature 98 F Pulse Rate 83 83 99 H Respiratory Rate 16 Blood Pressure 131/80 Pulse Oximetry 94 09/17/20 11:50 Temperature 97.7 F Pulse Rate 97 H Respiratory Rate 20 Blood Pressure 131/80 Pulse Oximetry 93 Oxygen Delivery Method Room Air Oxygen Flow Rate 0 Narrative Exam Narrative: GENERAL: Alert and oriented, appearing stated age and in no acute distress. HEENT: Head normocephalic/atraumatic. LUNGS: Clear to ausculation bilaterally, no wheezes, rhonchi or rales. CV: Normal S1 and S2 with regular rate and rhythm, no audible murmurs, rubs or gallops. ABDOMEN: Soft, non-tender, non-distended, no organomegaly. Positive bowel sounds. EXTREMITIES: No clubbing, cyanosis, or edema. NEURO: Cranial nerves II through XII grossly intact, no focal deficits. PSYCH: Alert and oriented x 3. SKIN: No concerning lesions. Objective Labs Result Diagrams: 09/17/20 11:58 09/17/20 11:58 Labs: Laboratory Results - last 24 hr 09/17/20 09/17/20 11:58 11:58 WBC 7.3 RBC 4.43 L Hgb 13.2 L Hct 38.2 L MCV 86.3 MCH 29.7 MCHC 34.4 RDW 13.7 Plt Count 321 Neut % (Auto) 64.4 Lymph % (Auto) 21.1 L [place] % (Auto) 12.1 Eos % (Auto) 1.9 L Baso % (Auto) 0.5 Neut # (Auto) 4700 Lymph # (Auto) 1500 [place] # (Auto) 900 Eos # (Auto) 100 Baso # (Auto) 0 Sodium 137 Potassium 4.7 Chloride 107 Carbon Dioxide 24 BUN 14 Creatinine 0.76 Estimated GFR > 60.0 BUN/Creatinine Ratio 18.4 Glucose 245 H D Calcium 9.2 Total Bilirubin 0.7 AST 33 ALT 45 Alkaline Phosphatase 86 NT-Pro-B Natriuret Pep 928 H Total Protein 6.4 Albumin 3.1 L Globulin 3.3 Albumin/Globulin Ratio 0.9 L PFSH Medical History Alcoholism in remission Anxiety DM type 2 (diabetes mellitus, type 2) (~2013) Foot pain Headache Hx of pancreatitis Hyperlipidemia Hypertension Kidney stone Right flank pain Vision disorder Surgical History Anesthesia Hx of appendectomy (~08/1974) Family History Mother Cancer Alzheimer disease Diabetes mellitus Mental health problem Thyroid disorder Father Cancer Diabetes mellitus Hyperlipidemia Hypertension Social History marital status: household members: spouse occupational status: previously employed Smoking Status: Former smoker alcohol intake: former caffeine: Yes Discharge Plan Discharge Plan Patient Disposition: Home Discharge orders & Medications Prescriptions: New Eliquis 5 mg Tablet 5 mg PO BID Qty: 60 RF: 0 metoprolol succinate 50 mg Tablet Extended Release 24 Hr 150 mg PO BID Qty: 60 RF: 0 digoxin 125 mcg (0.125 mg) Tablet 0.125 mg PO DAILY@1700 Qty: 30 RF: 0 Continued (DME) One Touch Ultra Test Strips See Rx Instructions .Route .MEDSUPPLY Qty: 180 RF: 3 (DME) insulin syringes (disposable) 1 mL syringe See Rx Instructions .ROUTE .MEDSUPPLY Qty: 500 RF: 1 metformin 1,000 mg tablet See Rx Instructions PO DAILY Qty: 225 RF: 0 citalopram 20 mg tablet See Rx Instructions .ROUTE .COMPLEX Qty: 90 RF: 0 lovastatin 10 mg tablet 10 mg PO DAILY Qty: 90 RF: 3 lisinopril 5 mg tablet See Rx Instructions .ROUTE .COMPLEX Qty: 90 RF: 0 insulin NPH isoph U-100 human [Humulin N NPH U-100 Insulin] 100 unit/mL suspension See Rx Instructions .ROUTE .COMPLEX Qty: 30 RF: 2 hydroxyzine HCl 25 mg tablet 25 mg PO BID PRN (Reason: anxiety) Qty: 30 RF: 0 cyclobenzaprine 5 mg tablet 5 mg PO BID PRN (Reason: muscle spasm) Qty: 30 RF: 0 Discontinued aspirin 81 mg tablet,delayed release (DR/EC) 81 mg PO DAILY RF: 0 Follow up/Referrals: Shanna Yu MD [Primary Care Provider] - Diet/Activity/Treatments Diet: Carb-consistent/Diabetic and Low-sodium Activity: As tolerated. Skin/Wound/Dressing Care Report to your healthcare provider any signs of infection, such as:: chills, fever, night sweats and increased pain Visit Report/Discharge Packet Instructions: DI for Heart Failure, DI for Atrial Fibrillation, DI for COVID-19 (Suspected or Confirmed ), How to Care for Someone with COVID-19 Discharge Data Primary Care Provider: Shanna Yu Quality VTE Deep Vein Thrombosis/Pulmonary Embolism Present on Admission: No
--- NOTE | 2020-09-17 15:51 | CM.DANOTE ---
Addendum entered by Elza Dorado R.N. 09/17/20 17:00: Pt escorted via W/C by staff to waiting vehicle. D/C in stable condition. Original Note: Pt received home discharge instructions w/ understanding. HL discontinued intact. Tele discontinued. Awaiting transportation
== END 2020-09-17 16:25 | disposition home or self-care (01) | DRG 177 ==
LOC: ED 18:12 → AC 19:22 → ICU 09-14 08:43
PROVIDERS: Emergency Medicine; Admitting Provider Family Medicine; Emergency Provider Emergency Medicine; PCP Family Medicine; Referring Provider Emergency Medicine; Visit Provider Family Medicine
DX: U07.1 COVID-19 (principal); J12.82 Pneumonia due to coronavirus disease 2019; J96.01 Acute respiratory failure with hypoxia; I50.20 Unspecified systolic (congestive) heart failure; I48.91 Unspecified atrial fibrillation; E78.5 Hyperlipidemia, unspecified; I11.0 Hypertensive heart disease with heart failure; E66.9 Obesity, unspecified; Z68.30 Body mass index [BMI] 30.0-30.9, adult; Z87.891 Personal history of nicotine dependence; R05 Cough
CPT/HCPCS: 36415; 36592; 71045; 80053; 82550; 82553; 82962; 83605; 83690; 83735; 83880; 84145; 84484; 85025; 85610; 85730; 87040; 87070; 87205; 87635; 87797; 93005; 93010; 93306; 94762; 96374; 99223; 99233; 99284; C9803; C9113; J1160; J1815; J1940; J2060

== ENCOUNTER → 2020-09-23 10:10 | Outpatient (CLI) | payer OTHER, SELFPAY ==
[2020-09-13 21:00] VITALS: BMI 30.8
[2020-09-23 11:30] LABS: Digoxin 0.5 ng/mL (0.8-2.0)
== END ==
PROVIDERS: PCP Family Medicine; Referring Provider Family Medicine; Visit Provider Family Medicine
DX: I48.91 Unspecified atrial fibrillation (principal)
CPT/HCPCS: 36415; 80162

== ENCOUNTER → 2022-06-22 08:51 | Outpatient (CLI) | payer OTHER, SELFPAY ==
[2020-09-13 21:00] VITALS: BMI 30.8
[2022-06-22 10:19] LABS: Add Manual Diff / Slide Review NO; Basophils Absolute Auto 0 /uL (0-100); Basophils Percent Auto 0.2 % (0-2); Eosinophils Absolute Auto 200 /uL (0-450); Eosinophils Percent Auto 2.9 % (2-4); Hematocrit 42.9 % (41-53); Hemoglobin 15.1 g/dL (13.5-17.5); Lymphocytes Absolute Auto 1600 /uL (1100-4500); Lymphocytes Percent Auto 27.1 % (25-40); Mean Corpuscular HGB Conc 35.2 % (30-36); Mean Corpuscular Hemoglobin 31.1 PG (26-34); Mean Corpuscular Volume 88.3 fL (80-100); Monocytes Absolute Auto 500 /uL (0-900); Monocytes Percent Auto 8.1 % (3-14); Neutrophils Absolute Auto 3600 /uL (1500-7000); Neutrophils Percent Auto 61.7 % (50-75); Platelet Count 215 X10^3/uL (150-400); Red Blood Cell Count 4.86 X10^6/uL (4.5-5.9); Red Cell Distribution Width 12.7 % (11.6-14.8); White Blood Cell Count 5.9 X10^3/uL (4.5-11.0)
[2022-06-22 11:01] LABS: Alanine Aminotransferase 21 IU/L (<50); Albumin 3.8 g/dL (3.5-5.0); Albumin Globulin Ratio 1.5 (1.0-2.8); Alkaline Phosphatase 102 U/L (38-126); Aspartate Aminotransferase 16 IU/L (17-59); BUN Creatinine Ratio 17.3 (6-22); Bilirubin Total 0.7 mg/dL (0.2-1.3); Blood Urea Nitrogen 13 mg/dL (9-20); Calcium 8.8 mg/dL (8.4-10.2); Carbon Dioxide 26 mmol/L (22-32); Chloride 100 mmol/L (98-107); Cholesterol 163 mg/dL (140-199); Estimated Glomerular Filt Rate > 60 mL/min (>60); Globulin 2.5 g/dL (1.7-4.1); Glucose 298 mg/dL (80-110); HDL Cholesterol 33 mg/dL (40-60); HEMOLYSIS < 15 (0-50); Potassium 4.4 mmol/L (3.4-5.1); Sodium 134 mmol/L (137-145); Total Protein 6.3 g/dL (6.3-8.2); Triglycerides 503 mg/dL (35-150)
[2022-06-23 05:17] LABS: x Labcorp Estim. Avg Glu (eAG) 226 mg/dL (.); x Labcorp Hemoglobin A1c 9.5 % (4.8-5.6)
== END ==
PROVIDERS: PCP Family Medicine; Referring Provider Family Medicine; Visit Provider Family Medicine
DX: E11.9 Type 2 diabetes mellitus without complications (principal); I10 Essential (primary) hypertension; E78.5 Hyperlipidemia, unspecified; F41.9 Anxiety disorder, unspecified
CPT/HCPCS: 36415; 80053; 80061; 83036; 85025

== ENCOUNTER → 2022-06-23 08:39 | Outpatient (CLI) | payer OTHER, SELFPAY ==
[2020-09-13 21:00] VITALS: BMI 30.8
[2022-06-23 10:31] LABS: Magnesium 1.8 mg/dL (1.6-2.3)
[2022-06-23 10:33] LABS: Creatinine Urine Random 84.8 mg/dL
[2022-06-23 10:41] LABS: Microalbumin Urine Random < 0.6 mg/dL (0-1.6)
[2022-06-23 11:02] LABS: TSH w/ Reflex to FT4 0.43 uIU/mL (0.47-4.68)
== END ==
PROVIDERS: PCP Family Medicine; Referring Provider Internal Medicine Cardiovascular Disease; Visit Provider Internal Medicine Cardiovascular Disease
DX: I48.91 Unspecified atrial fibrillation (principal); I10 Essential (primary) hypertension; E78.5 Hyperlipidemia, unspecified; E11.9 Type 2 diabetes mellitus without complications
CPT/HCPCS: 82043; 82570; 83735; 84439; 84443

== ENCOUNTER → 2022-11-14 08:55 | Outpatient (CLI) | payer OTHER, SELFPAY ==
[2020-09-13 21:00] VITALS: BMI 30.8
[2022-11-14 10:19] LABS: Hemoglobin A1C% w Est Avg Glu 7.2 % (4.0-6.0)
[2022-11-14 10:25] LABS: Cholesterol 118 mg/dL (140-199); HDL Cholesterol 41 mg/dL (40-60); LDL Cholesterol Calculated 43 mg/dL (<100); Triglycerides 171 mg/dL (35-150)
== END ==
PROVIDERS: PCP Family Medicine; Referring Provider Family Medicine; Visit Provider Family Medicine
DX: E11.9 Type 2 diabetes mellitus without complications (principal)
CPT/HCPCS: 36415; 80061; 83036

== ENCOUNTER → 2023-07-19 09:03 | Outpatient (CLI) | payer MEDICARE, OTHER, SELFPAY ==
[2020-09-13 21:00] VITALS: BMI 30.8
[2023-07-19 10:42] LABS: Alanine Aminotransferase 22 IU/L (<50); Albumin 4.5 g/dL (3.5-5.0); Albumin Globulin Ratio 1.8 (1.0-2.8); Alkaline Phosphatase 76 U/L (38-126); Aspartate Aminotransferase 19 IU/L (17-59); BUN Creatinine Ratio 21.1 (6-22); Blood Urea Nitrogen 20 mg/dL (9-20); Calcium 9.5 mg/dL (8.4-10.2); Carbon Dioxide 24 mmol/L (22-32); Chloride 104 mmol/L (98-107); Cholesterol 113 mg/dL (140-199); Estimated Glomerular Filt Rate > 60 mL/min (>60); Globulin 2.5 g/dL (1.7-4.1); Glucose 188 mg/dL (80-110); HDL Cholesterol 50 mg/dL (40-60); HEMOLYSIS < 15 (0-50); LDL Cholesterol Calculated 30 mg/dL (<100); Potassium 4.8 mmol/L (3.4-5.1); Sodium 137 mmol/L (137-145); Triglycerides 167 mg/dL (35-150)
[2023-07-19 10:48] LABS: Hemoglobin A1C% w Est Avg Glu 7.6 % (4.0-6.0)
[2023-07-19 11:11] LABS: TSH w/ Reflex to FT4 0.94 uIU/mL (0.47-4.68)
== END ==
PROVIDERS: PCP Family Medicine; Referring Provider Family Medicine; Visit Provider Family Medicine
DX: E11.9 Type 2 diabetes mellitus without complications (principal); E78.5 Hyperlipidemia, unspecified; I10 Essential (primary) hypertension
CPT/HCPCS: 36415; 80053; 80061; 83036; 84443

== ENCOUNTER → 2024-04-13 12:19 | Outpatient (CLI) | payer MEDICARE, SELFPAY ==
[2020-09-13 21:00] VITALS: BMI 30.8
[2024-04-13 18:06] LABS: Influenza A - CEPHEID Flu A POSITIVE (NEGATIVE); Influenza B - CEPHEID Flu B NEGATIVE (NEGATIVE); Respiratory Syncytial Virus Negative (Negative)
[2024-04-13 18:11] LABS: COVID-19 CEPHEID 4-PLEX PCR Negative (Negative)
== END ==
PROVIDERS: PCP Family Medicine; Visit Provider Nurse Practitioner Family
DX: R05.9 Cough, unspecified (principal); B34.9 Viral infection, unspecified; R09.89 Other specified symptoms and signs involving the circulatory and respiratory systems
CPT/HCPCS: 0241U